=== PATIENT | female | born 1975 | race Caucasian/White ===

== ENCOUNTER 2016-10-22 05:58 | Inpatient (IN) | payer OTHER ==
--- NOTE | 2016-10-22 07:06 | PDOC ---
History of Present Illness <Jose Melvin - Last Filed: 10/22/16 12:21> - History of Present Illness Initial Comments: 10/22/16 07:21 41 F with h/o DM, diverticulitis s/p sigmoidectomy, ventral and umbilical hernias, presents to ER with 1 day of abdominal pain. Pt states that she began to feel discomfort yesterday but didn't think much of the pain. Today, the pain worsened at around 1am. It is mostly in the lower abdomen abut also in the epigastric area. Pt endorses nausea but no vomiting. Has not passed stool or flatus in 2 days. Does not typically suffer from constipation. Pt denies F/C. Denies CP/SOB. Pt states that the pain is worse when she stands up. Does not report any difficulty reducing her hernias. <Boubacar Prajapati - Last Filed: 10/22/16 12:34> - General Chief Complaint: Pain Stated Complaint: ABDOMINAL PAIN Time Seen by Provider: 10/22/16 07:06 Past History <NgoziJose - Last Filed: 10/22/16 12:21> - Past Medical History Diabetes: Yes (NIDDM) Suicide Attempt (Hx): No - Family Disease History Family Disease History: Diabetes: Father - Psycho/Social/Smoking Cessation Hx Anxiety: No Suicidal Ideation: No Smoking History: Never smoked Have you smoked in the past 12 months: Yes Number of Cigarettes Smoked Daily: 0 Information on smoking cessation initiated: No Hx Alcohol Use: No Drug/Substance Use Hx: No Substance Use Type: None <Boubacar Prajapati - Last Filed: 10/22/16 12:34> - Past Medical History Allergies/Adverse Reactions: Allergies Allergy/AdvReac Type Severity Reaction Status Date / Time Penicillins Allergy Verified 10/22/16 06:23 piperacillin sodium Allergy Verified 10/22/16 06:23 [From Zosyn] tazobactam sodium Allergy Verified 10/22/16 06:23 [From Zosyn] Home Medications: Ambulatory Orders Ezetimibe [Zetia] 10 mg PO DAILY 09/13/14 Cholecalciferol (Vitamin D3) [Vitamin D3 -] 400 unit PO DAILY 10/22/16 Dapagliflozin Propanediol [Farxiga] 10 mg PO DAILY 10/22/16 Glipizide Xl [Glucotrol Xl -] 5 mg PO DAILY 10/22/16 Lisinopril [Zestril] 2.5 mg PO DAILY 10/22/16 Review of Systems - Review of Systems Comments:: 10/22/16 07:24 "GENERAL/CONSTITUTIONAL: No fever, no lethargy HEAD, EYES, EARS, NOSE AND THROAT: No eye discharge. No ear pain or discharge. No sore throat. CARDIOVASCULAR: No chest pain. RESPIRATORY: No cough, no wheezing. GASTROINTESTINAL: +abdominal pain, constipation, nausea GENITOURINARY: No dysuria, no change in urine output MUSCULOSKELETAL: No joint pain. No neck or back pain. SKIN: No rash NEUROLOGIC: No headache, loss of consciousness, irritability. ENDOCRINE: No increased thirst. No abnormal weight change. ALLERGIC/IMMUNOLOGIC: No hives or skin allergy. " <Boubacar Prajapati - Last Filed: 10/22/16 12:34> *Physical Exam - Vital Signs Last Vital Signs Temp Pulse Resp BP Pulse Ox 97.8 F 65 16 134/71 99 10/22/16 06:17 10/22/16 06:17 10/22/16 06:17 10/22/16 06:17 10/22/16 06:17 <Jose Melvin - Last Filed: 10/22/16 12:21> - Vital Signs Last Vital Signs Temp Pulse Resp BP Pulse Ox 97.8 F 65 16 134/71 99 10/22/16 06:17 10/22/16 06:17 10/22/16 06:17 10/22/16 06:17 10/22/16 06:17 - Physical Exam Comments: 10/22/16 07:24 "GENERAL: Awake, alert, and appropriately interactive EYES: PERRLA, clear conjunctiva NOSE: Nose is clear without discharge EARS: EACs and TMs are normal THROAT: Moist mucosa, oropharynx is clear without erythema or exudates, NECK: Supple, no adenopathy, no meningismus CHEST: Lungs are clear without crackles, or wheezes HEART: Regular rhythm, normal S1 and S2, no murmurs ABDOMEN: + soft, TTP in epigastric and periumbilical region, no rebound/guarding , no palpable masses or hernia EXTREMITIES: Normal NEURO: Behavior normal for age, normal cranial nerves, normal tone SKIN: Unremarkable, no rash, no swelling, no bruising, no signs of injury " <OuBoubacar - Last Filed: 10/22/16 12:34> ED Treatment Course - LABORATORY CBC & Chemistry Diagram: 10/22/16 07:20 10/22/16 07:20 - ADDITIONAL ORDERS Additional order review: Laboratory Results 10/22/16 10/22/16 10/22/16 07:20 07:20 07:20 INR 0.99 PTT (Actin FS) 27.5 Sodium 137 Potassium 4.6 D Chloride 107 Carbon Dioxide 24 Anion Gap 6 L BUN 9 D Creatinine 0.6 Creat Clearance w eGFR > 60 Random Glucose 120 H Lactic Acid Calcium 8.8 Magnesium 2.3 Total Bilirubin 0.3 D Direct Bilirubin < 0.2 AST 19 ALT 34 Alkaline Phosphatase 119 H D Total Protein 6.9 Albumin 3.7 Lipase 131 Urine Color Urine Appearance Urine pH Urine Protein Urine Glucose (UA) Urine Ketones Urine Blood Urine Nitrite Urine Bilirubin Urine Urobilinogen Ur Leukocyte Esterase Urine RBC Urine WBC Ur Epithelial Cells Urine Mucus Urine HCG, Qual Blood Type Antibody Screen 10/22/16 10/22/16 10/22/16 07:20 07:20 07:19 INR PTT (Actin FS) Sodium Potassium Chloride Carbon Dioxide Anion Gap BUN Creatinine Creat Clearance w eGFR Random Glucose Lactic Acid 1.2 Calcium Magnesium Total Bilirubin Direct Bilirubin AST ALT Alkaline Phosphatase Total Protein Albumin Lipase Urine Color Yellow Urine Appearance Slcloudy Urine pH 5.0 Urine Protein Negative Urine Glucose (UA) 3+ H Urine Ketones Trace H Urine Blood 2+ H Urine Nitrite Negative Urine Bilirubin Negative Urine Urobilinogen Negative Ur Leukocyte Esterase Trace Urine RBC 3 Urine WBC 13 Ur Epithelial Cells Rare Urine Mucus Rare Urine HCG, Qual Negative Blood Type A NEGATIVE Antibody Screen Negative 10/22/16 07:20 RBC 4.82 MCV 87.6 MCHC 33.2 RDW 14.0 MPV 7.8 Neutrophils % 70.0 Lymphocytes % 22.4 D Monocytes % 5.8 Eosinophils % 1.4 D Basophils % 0.4 - Medications Given in the ED: ED Medications Discontinued Medications Generic Name Dose Route Start Last Admin Trade Name Freq PRN Reason Stop Dose Admin Sodium Chloride 1,000 mls @ 1,000 mls/hr 10/22/16 07:21 10/22/16 07:45 Normal Saline - IV 10/22/16 08:20 1,000 mls/hr ASDIR STA Administration Morphine Sulfate 4 mg 10/22/16 07:21 10/22/16 07:45 Morphine Injection - IVPUSH 10/22/16 07:22 4 mg ONCE ONE Administration Morphine Sulfate 4 mg 10/22/16 10:38 10/22/16 10:39 Morphine Injection - IVPUSH 10/22/16 10:39 4 mg ONCE ONE Administration Ondansetron HCl 4 mg 10/22/16 07:21 10/22/16 07:45 Zofran Injection IVPB 10/22/16 07:22 4 mg ONCE ONE Administration <Jose Melvin - Last Filed: 10/22/16 12:21> - LABORATORY CBC & Chemistry Diagram: 10/22/16 07:20 10/22/16 07:20 <Boubacar Prajapati - Last Filed: 10/22/16 12:34> Medical Decision Making - Medical Decision Making 10/22/16 10:[address] kim @10:36am. Busy line, left voice mail. Awaiting Call Back. Call back from Dr. Kim @10:41am. Called Dr. Lexii Miles @12:20pm. Away from office. Awaiting call back. <Jose Melvin - Last Filed: 10/22/16 12:21> - Medical Decision Making 10/22/16 07:26 41 F with abdominal pain. No stool/flatus x 2 days, concerning for obstruction. Possible incarcerated hernia, though not palpable on exam. - Labs - CTAP - IVF, morphine, zofran 10/22/16 11:03 CTAP read shows air in endometrial canal. No other intraabdominal pathology found. Spoke with Dr. Vernon electronics teacher property economist, who recommends obtaining TVUS to better evaluate. Will empirically start antibiotics for possible endometritis and admit to hospitalist. Dr. Vernon to eval in AM. 10/22/16 12:33 TVUS with IUD in place, no collections, cannot rule out air. Spoke with Dr. Alex Miles, who will admit pt. Pt to be evaluated by Ob/ mine development engineer tomorrow. <Boubacar Prajapati - Last Filed: 10/22/16 12:34> *DC/Admit/Observation/Transfer - Attestations Scribe Attestion: 10/22/16 10:48 Documentation prepared by Jose Melvin, acting as medical insurance biller for Boubacar Prajapati MD. <Jose Melvin - Last Filed: 10/22/16 12:21> - Discharge Dispostion Admit: Yes <Boubacar Prajpaati - Last Filed: 10/22/16 12:34> Diagnosis at time of Disposition: Endometritis - Referrals Referrals: Alex Miles MD [Primary Care Provider] -
[2016-10-22] MEDS ORDERED: SODIUM CHLORIDE 1,000 ML IV STA (07:21)
[2016-10-22] MEDS ORDERED: ONDANSETRON 4 MG/2 ML VIAL IVPB ONE ×2 (07:21→11:49)
[2016-10-22] MEDS ORDERED: morphine CARPU-JECT 4 MG/1 ML DISP.SYRIN IVPUSH ONE ×2 (07:21→10:38)
[2016-10-22] MEDS ORDERED: morphine CARPU-JECT 2 MG/1 ML DISP.SYRIN ONE ×2 (07:30→10:26)
[2016-10-22] MEDS ORDERED: ONDANSETRON 4 MG/2 ML VIAL ONE ×2 (07:31→11:54)
[2016-10-22 07:34] LABS: BASOPHIL 0.4 % (0-2.0); EOSINOPHIL 1.4 % (0-4.5); MCH 29.1 pg (25.7-33.7); MCHC 33.2 g/dl (32.0-36.0); MEAN CELL VOLUME 87.6 fl (80-96); MEAN PLT VOLUME 7.8 fl (7.5-11.1); PLATELET COUNT 306 K/MM3 (134-434); URINE APPEARANCE SLCLOUDY; URINE BILIRUBIN NEGATIVE (NEGATIVE); URINE BLOOD 2+ (NEGATIVE); URINE COLOR YELLOW; URINE GLUCOSE (UA) 3+ (NEGATIVE); URINE KETONE TRACE (NEGATIVE); URINE LEUK ESTERASE TRACE (NEGATIVE); URINE NITRITE NEGATIVE (NEGATIVE); URINE PROTEIN NEGATIVE (NEGATIVE); URINE UROBILINOGEN NEGATIVE mg/dL (0.2-1.0); WHITE BLOOD COUNT 13.4 K/mm3 (4.0-10.0)
[2016-10-22 07:58] LABS: ALBUMIN 3.7 g/dl (3.4-5.0); ALK PHOS 119 U/L (45-117); ANION GAP 6 (8-16); BILIRUBIN,TOTAL 0.3 mg/dL (0.2-1.0); CALCIUM 8.8 mg/dL (8.5-10.1); CO2 24 mmol/L (21-32); CREATININE 0.6 mg/dL (0.55-1.02); GLUCOSE,RANDOM 120 mg/dL (74-106); SGPT/ALT 34 U/L (12-78); TOT PROT 6.9 g/dl (6.4-8.2)
[2016-10-22 08:05] LABS: BILIRUBIN,DIRECT < 0.2 mg/dL (0.0-0.2); SGOT/AST 19 U/L (15-37)
[2016-10-22 08:21] LABS: INR 0.99 (0.82-1.09); PROTHROMBIN TIME (PATIENT) 10.9 SEC (9.98-11.88)
[2016-10-22 08:24] LABS: ACTIVATED PTT 27.5 SECONDS (26.9-34.4)
[2016-10-22 08:34] LABS: URINE MUCUS RARE; URINE RBC 3 /hpf (0-3); URINE WBC 13 /hpf (3-5)
[2016-10-22] MEDS ORDERED: IBUPROFEN 400 MG TABLET (FP) PO ONE (09:08)
[2016-10-22] MEDS ORDERED: cefOXitin SODIUM 2 GM VIAL (RESTRICTED TO ID) IVPB ONE (10:46)
[2016-10-22] MEDS ORDERED: DOXYCYCLINE HYCLATE 100 MG CAPSULE PO ONE ×2 (10:48→10:51)
[2016-10-22] MEDS ORDERED: FAMOTIDINE 20 MG/50 ML IVPB 50 ML IVPB ONE ×2 (11:49→11:54)
[2016-10-22] MEDS ORDERED: INSULIN (NOVOLOG) ASPART 100 UNITS/ML 10ML VIAL SQ PRN (13:09)
--- NOTE | 2016-10-22 13:14 | HP ---
Admitting History and Physical - Primary Care Physician PCP: Rosario Weathers - Admission Chief Complaint: abdominal pain. History of Present Illness: 41 F with h/o DM, diverticulitis s/p sigmoidectomy, ventral and umbilical hernias, presents to ER with 1 day of abdominal pain. Pt states that she began to feel discomfort yesterday but didn't think much of the pain. Today, the pain worsened at around 1am. It is mostly in the lower abdomen abut also in the epigastric area. Pt endorses nausea but no vomiting. Has not passed stool or flatus in 2 days. Does not typically suffer from constipation. Pt denies F/C. Denies CP/SOB. Pt states that the pain is worse when she stands up. Does not report any difficulty reducing her hernias. work up showed air in endometrial canal-- otherwise no acute issues pt given abx/ pain meds and being admitted to floor. feels better after that. urogynecology physician consulted by er physician. case discussed with er physician. pt seen by me in er. chart reviewed pt recently also seen in office by Dr. Weathers-- was reffered to Dr García for hernias-- pt would like to see Dr. Nuñez in hospital today. History Source: Patient Limitations to Obtaining History: No Limitations - Past Medical History Cardiovascular: Yes: Hyperlipdemia Gastrointestinal: Yes: Diverticulitis, Other (METABOLIC SYNDROME) Hepatobiliary: Yes: Other (FATTY LIVER) ...LMP: 11/14/14 Endocrine: Yes: Diabetes Mellitus, Other (METABOLIC SYNDROME) - Smoking History Smoking history: Never smoked Have you smoked in the past 12 months: Yes Aproximately how many cigarettes per day: 0 - Alcohol/Substance Use Hx Alcohol Use: No Home Medications - Allergies Allergies/Adverse Reactions: Allergies Allergy/AdvReac Type Severity Reaction Status Date / Time Penicillins Allergy Verified 10/22/16 06:23 piperacillin sodium Allergy Verified 10/22/16 06:23 [From Zosyn] tazobactam sodium Allergy Verified 10/22/16 06:23 [From Zosyn] - Home Medications Home Medications: Ambulatory Orders Lisinopril [Zestril] 2.5 mg PO DAILY 10/22/16 Family Disease History - Family Disease History Family History: Unremarkable Review of Systems - Review of Systems Constitutional: reports: Lethargy Eyes: reports: No Symptoms HENT: reports: No Symptoms Neck: reports: No Symptoms Cardiovascular: reports: No Symptoms Respiratory: reports: No Symptoms Gastrointestinal: reports: Abdominal Pain Genitourinary: reports: No Symptoms Musculoskeletal: reports: No Symptoms Neurological: reports: No Symptoms Psychiatric: reports: No Symptoms Physical Examination Vital Signs: Vital Signs Temperature 97.8 F 10/22/16 06:17 Pulse Rate 65 10/22/16 06:17 Respiratory Rate 16 10/22/16 06:17 Blood Pressure 134/71 10/22/16 06:17 O2 Sat by Pulse Oximetry (%) 99 10/22/16 06:17 Constitutional: Yes: Calm, Mild Distress, Obese. No: No Distress Eyes: Yes: Conjunctiva Clear Neck: Yes: Supple Cardiovascular: Yes: Regular Rate and Rhythm Respiratory: Yes: CTA Bilaterally Gastrointestinal: Yes: Soft, Other (hernia +) Edema: No Neurological: Yes: Alert Labs: CBC, BMP 10/22/16 07:20 10/22/16 07:20 Imaging - Results Cat Scan: Report Reviewed Ultrasound: Report Reviewed Problem List - Problems (1) Endometritis Code(s): N71.9 - INFLAMMATORY DISEASE OF UTERUS, UNSPECIFIED (2) NIDDY (non-insulin dependent diabetes 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 Assessment/Plan Abx clear liquid diet for now pain control hold diabetic meds bgm - coverage urogynecology physician consult surgical consult discussed with pts family also who is at bedside will follow
--- NOTE | 2016-10-22 15:20 | PN ---
Progress Note (short form) - Note Progress Note: ID Consult dictated Acute endometritis v. colonic fistula ? Pelvic actinomycosis (IUD) PCN allergy Obtain c/s OVERLOCKER/ Surg evaluation Empiric cefoxitin/ Doxycycline
[2016-10-22 15:46] VITALS: BMI 32.3
[2016-10-22] MEDS: SODIUM CHLORIDE 1,000 ML IV SCH (16:34)
[2016-10-22] MEDS: morphine CARPU-JECT 2 MG/1 ML DISP.SYRIN IVPUSH PRN ×2 (16:34→20:31)
[2016-10-22] MEDS: ONDANSETRON 4 MG/2 ML VIAL IVPB PRN (16:46)
--- NOTE | 2016-10-22 17:12 | CONS ---
DATE OF CONSULTATION: DATE OF DICTATION: 10/22/2016 INFECTIOUS DISEASE CONSULTATION HISTORY OF PRESENT ILLNESS: The patient is a 41-year-old female who is evaluated for endometritis. She has a history of recurrent acute diverticulitis. She is status post sigmoidectomy in 2013. She developed a 1-day history of abdominal pain. Patient began to experience pain across her lower abdomen as well as left upper abdomen associated with some nausea but no vomiting. In addition the patient became constipated. She had not passed stool or flatus for the past 2-3 days. She presented to the emergency room, where a CAT scan of the abdomen and pelvis was performed. The significant finding on the CAT scan showed air around the stem of an IUD present in the lower uterine segment with some air in the vaginal region. Differential diagnosis included endometritis versus possible fistula with bowel. She was empirically treated with and doxycycline. The patient denies any vaginal discharge or bleeding. She is not sexually active. An IUD was placed in March this year because of menometrorrhagia. She denies history of sexually transmitted diseases. PAST MEDICAL HISTORY: Positive for diabetes mellitus, recurrent diverticulitis. PAST SURGICAL HISTORY: Status post sigmoidectomy. ALLERGIES: PENICILLIN. Patient reports developing rash with ZOSYN. MEDICATION: Include cefoxitin, doxycycline, heparin, Novolog, morphine. SOCIAL HISTORY: She lives at home. She is a nonsmoker, nondrinker. She is employed, is single. SYSTEMS REVIEW: Neurologic: No loss of consciousness, seizure activity, or focal weakness. Cardiac: Negative chest pain or palpitations. Respiratory: Negative cough or sputum production. Gastrointestinal: As per HPI. Genitourinary: Negative for urinary tract infection. LABORATORY DATA: White count 13.4, 70 neutrophils, 22 lymphocytes, 5 monocytes. Hematocrit 42.3, platelet count 386, creatinine 0.6, urinalysis 13 white cells. PHYSICAL EXAMINATION: General: She is awake and alert. She is in moderate distress secondary to abdominal pain. Vital signs: Temperature 98.2, blood pressure 134/80, pulse 70 and regular, respirations 20 per minute. HEENT: Sclerae anicteric. Cardiovascular: Heart sounds S1, S2. Respiratory: Lungs clear. Abdomen: Soft. There is lower abdominal tenderness bilaterally. Left paraumbilical tenderness. No mass, rebound, or rigidity. Healed surgical scar is noted. Extremities: Negative for edema. IMPRESSION: 1. Acute endometritis versus colonic fistula. 2. 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 3. PENICILLIN allergy. Obtain blood cultures, urine culture, urine for GC chlamydia, empiric antibiotic coverage for endometritis, in this PENICILLIN allergic patient with cefoxitin. Will add doxycycline as a second-line drug for actinomycosis in this PENICILLIN allergic patient. Surgical and FORMULATOR COMPOUNDER evaluations. Thank you for the kind referral. ROGELIO KING M.D. [facility]/[id number]
[2016-10-22] MEDS ORDERED: PT OWN MED DRAWER 7, Y5N ONE (20:24)
[2016-10-22] MEDS ORDERED: cefOXitin SODIUM 2 GM VIAL (RESTRICTED TO ID) IVPB SCH (21:00)
[2016-10-22] MEDS: DOXYCYCLINE INJECTION 100 MG in DEXTROSE 5%-WATER - 100 ML IVPB SCH (21:43)
[2016-10-22] MEDS: CEFOXITIN SODIUM 2 GM in DEXTROSE 5%-WATER 100 ML IVPB SCH (21:43)
[2016-10-22] MEDS: HEPARIN NA (PORCINE) 5,000 UNITS/ML 1ML VIAL SQ SCH (21:44)
[2016-10-23] MEDS: CEFOXITIN SODIUM 2 GM in DEXTROSE 5%-WATER 100 ML IVPB SCH ×2 (03:00→09:32)
[2016-10-23] MEDS: SODIUM CHLORIDE 1,000 ML IV SCH ×3 (06:00→20:14)
[2016-10-23] MEDS: morphine CARPU-JECT 2 MG/1 ML DISP.SYRIN IVPUSH PRN ×2 (06:27→11:07)
[2016-10-23 07:10] LABS: BASOPHIL 0.3 % (0-2.0); EOSINOPHIL 2.6 % (0-4.5); MCHC 33.4 g/dl (32.0-36.0); MEAN CELL VOLUME 86.8 fl (80-96); MEAN PLT VOLUME 8.1 fl (7.5-11.1); NEUTROPHILS 66.7 % (42.8-82.8); PLATELET COUNT 273 K/MM3 (134-434); WHITE BLOOD COUNT 11.7 K/mm3 (4.0-10.0)
[2016-10-23 07:19] LABS: ALBUMIN 3.2 g/dl (3.4-5.0); ANION GAP 7 (8-16); BILIRUBIN,TOTAL 0.5 mg/dL (0.2-1.0); CALCIUM 8.1 mg/dL (8.5-10.1); CO2 25 mmol/L (21-32); CREATININE 0.6 mg/dL (0.55-1.02); GLUCOSE,RANDOM 99 mg/dL (74-106); SGOT/AST 14 U/L (15-37); SGPT/ALT 30 U/L (12-78); TOT PROT 6.3 g/dl (6.4-8.2)
[2016-10-23 07:20] LABS: ALK PHOS 102 U/L (45-117)
[2016-10-23] MEDS ORDERED: PT OWN MED DRAWER 7, Y5N ONE (08:42)
[2016-10-23] MEDS: HEPARIN NA (PORCINE) 5,000 UNITS/ML 1ML VIAL SQ SCH ×2 (09:35→21:01)
[2016-10-23] MEDS: DOXYCYCLINE INJECTION 100 MG in DEXTROSE 5%-WATER - 100 ML IVPB SCH (09:37)
--- NOTE | 2016-10-23 09:54 | PN ---
Progress Note, Physician Chief Complaint: has pelvic pain no nausea has constipation - Current Medication List Current Medications: Active Medications Heparin Sodium (Porcine) (Heparin -) 5,000 unit SQ BID LUCY Last Admin: 10/23/16 09:35 Dose: 5,000 unit Sodium Chloride (Normal Saline -) 1,000 mls @ 100 mls/hr IV ASDIR LUCY Last Admin: 10/23/16 06:00 Dose: 100 mls/hr Doxycycline Hyclate 100 mg/ (Dextrose) 100 mls @ 100 mls/hr IVPB BID LUCY Last Admin: 10/23/16 09:37 Dose: 100 mls/hr Cefoxitin Sodium 2 gm/ (Dextrose) 100 mls @ 200 mls/hr IVPB Q6H-IV LUCY Last Admin: 10/23/16 09:32 Dose: 200 mls/hr Insulin Aspart (Novolog Vial) 0 units SQ BIDAC PRN; Protocol PRN Reason: APTT Morphine Sulfate (Morphine Injection -) 2 mg IVPUSH Q4H PRN PRN Reason: MODERATE PAIN Last Admin: 10/23/16 06:27 Dose: 2 mg Ondansetron HCl (Zofran Injection) 4 mg IVPB Q6H PRN PRN Reason: NAUSEA Last Admin: 10/22/16 16:46 Dose: 4 mg - Objective Vital Signs: Vital Signs Temperature 98.1 F 10/23/16 06:00 Pulse Rate 65 10/23/16 06:00 Respiratory Rate 20 10/23/16 06:00 Blood Pressure 125/66 10/23/16 06:00 O2 Sat by Pulse Oximetry (%) 96 10/22/16 21:00 Constitutional: Yes: No Distress Cardiovascular: Yes: Regular Rate and Rhythm Respiratory: Yes: CTA Bilaterally Gastrointestinal: Yes: Normal Bowel Sounds, Soft. No: Distention, Tenderness Genitourinary: Yes: Other (suprapubic tenderness) Edema: No Psychiatric: Yes: Alert, Oriented Labs: CBC, BMP 10/23/16 06:00 10/23/16 06:00 INR, PTT INR 0.99 (0.82-1.09) 10/22/16 07:20 Problem List - Problems (1) Endometritis Code(s): N71.9 - INFLAMMATORY DISEASE OF UTERUS, UNSPECIFIED (2) Dehydration Code(s): E86.0 - DEHYDRATION (3) Diabetes mellitus Code(s): E11.9 - TYPE 2 DIABETES MELLITUS WITHOUT COMPLICATIONS Qualifiers: Diabetes mellitus type: type 2 Assessment/Plan PLAN iv antibiotics spoke with ID and MARINE STRUCTURAL WELDER to remove IUD today continue with meds pain control
--- NOTE | 2016-10-23 10:03 | PN ---
Progress Note, Physician Chief Complaint: ID NAD Pain 5/10 on pain scale today Cefotetan and doxycycline - Current Medication List Current Medications: Active Medications Heparin Sodium (Porcine) (Heparin -) 5,000 unit SQ BID LUCY Last Admin: 10/23/16 09:35 Dose: 5,000 unit Sodium Chloride (Normal Saline -) 1,000 mls @ 100 mls/hr IV ASDIR LUCY Last Admin: 10/23/16 06:00 Dose: 100 mls/hr Doxycycline Hyclate 100 mg/ (Dextrose) 100 mls @ 100 mls/hr IVPB BID LUCY Last Admin: 10/23/16 09:37 Dose: 100 mls/hr Cefoxitin Sodium 2 gm/ (Dextrose) 100 mls @ 200 mls/hr IVPB Q6H-IV LUCY Last Admin: 10/23/16 09:32 Dose: 200 mls/hr Insulin Aspart (Novolog Vial) 0 units SQ BIDAC PRN; Protocol PRN Reason: APTT Morphine Sulfate (Morphine Injection -) 2 mg IVPUSH Q4H PRN PRN Reason: MODERATE PAIN Last Admin: 10/23/16 06:27 Dose: 2 mg Ondansetron HCl (Zofran Injection) 4 mg IVPB Q6H PRN PRN Reason: NAUSEA Last Admin: 10/22/16 16:46 Dose: 4 mg - Objective Vital Signs: Vital Signs Temperature 98.1 F 10/23/16 06:00 Pulse Rate 65 10/23/16 06:00 Respiratory Rate 20 10/23/16 06:00 Blood Pressure 125/66 10/23/16 06:00 O2 Sat by Pulse Oximetry (%) 96 10/22/16 21:00 Constitutional: Yes: Well Nourished, No Distress HENT: Yes: WNL, Atraumatic Neck: Yes: WNL, Supple Cardiovascular: Yes: S1, S2 Respiratory: Yes: WNL, Regular, CTA Bilaterally Gastrointestinal: Yes: WNL, Normal Bowel Sounds, Soft, Tenderness. No: Tenderness, Rebound Edema: No Labs: CBC, BMP 10/23/16 06:00 10/23/16 06:00 INR, PTT INR 0.99 (0.82-1.09) 10/22/16 07:20 Assessment/Plan Laboratory Tests 08/25/17 08/25/17 08/26/17 07:20 07:20 06:00 WBC 13.4 H Hgb 14.0 D Hct 42.3 Plt Count 306 BUN 5 L D Creatinine 0.6 Total Protein 6.3 L Albumin 3.2 L Urine RBC 3 Urine WBC 13 C.trachomatis Ampl DNA N. gonorrhoeae (VLA) 10/23/16 06:00 WBC Hgb Hct Plt Count BUN Creatinine Total Protein Albumin Urine RBC Urine WBC C.trachomatis Ampl DNA Pending N. gonorrhoeae (VAL) Pending Assessment Infection associated with an IUD since 2106 She has not been sexually active in years and the IUD placed for other reasons. Dr Akers raises the interesting possibility of Actinomycosis ( IUD) in a PCN allergic patient. She is not sexually active so STD unlikely Advise Clindamycin 600mg IVPB q 8h and Ceftriaxone HIV testing ESR CRP Await CLAIMS DIRECTOR evaluation Suspect IDU will need to be removed Chanel SAENZ
--- NOTE | 2016-10-23 10:10 | CONSULT ---
- Consultation REQUESTING PROVIDER: Jd SAENZ CONSULT REQUEST: We have been asked to surgically evaluate this patient for abdominal pain/abdominal wall hernia(s) PCP:Alex Miles HISTORY OF PRESENT ILLNESS: CTSP who told me she has an appt. next week to see me for evaaluation and management of an abdominal wall hernia; she was admitted w/ lower abdominal/pelvic pain which is ?? due to endometritis ??; she has a h/ o a sigmoid colon resection for diverticulitis 2 years ago after # attacks; she is aware of the hernia from a recent outpatient CT scan and ?? lower abdominal bulging ??. PMHx: hypertension PSHx: sigmoid colon resection Home Medications Medication Instructions Recorded Lisinopril [Zestril] 2.5 mg PO DAILY 10/22/16 Allergies Allergy/AdvReac Type Severity Reaction Status Date / Time Penicillins Allergy Verified 10/22/16 06:23 piperacillin sodium Allergy Verified 10/22/16 06:23 [From Zosyn] tazobactam sodium Allergy Verified 10/22/16 06:23 [From Zosyn] PHYSICAL EXAM: GENERAL: Awake, alert, and fully oriented, in no acute distress. HEAD: Normal with no signs of trauma. EYES: sclera anicteric, conjunctiva clear. NECK: Normal ROM, supple without lymphadenopathy, JVD, or masses. ABDOMEN: Soft, nontender, not distended, normoactive bowel sounds, no guarding, no rebound, no masses. No organomegaly. Healed surgical scar; lower abdominal wall incisional hernia; reducible. MUSCULOSKELETAL: Normal ROM at all joints. No bony deformities or tenderness. No CVA tenderness. UPPER EXTREMITIES: 2+ pulses, warm, well-perfused. No cyanosis. Cap refill <2 seconds. No peripheral edema. LOWER EXTREMITIES: 2+ pulses, warm, well-perfused. No calf tenderness. No peripheral edema. NEUROLOGICAL: Normal speech, gait not observed. PSYCH: Cooperative. Good eye contact. Appropriate mood and affect. SKIN: Warm, dry, normal turgor, no rashes or lesions noted. Vital Signs Temperature 98.1 F 10/23/16 06:00 Pulse Rate 65 10/23/16 06:00 Respiratory Rate 20 10/23/16 06:00 Blood Pressure 125/66 10/23/16 06:00 O2 Sat by Pulse Oximetry (%) 96 10/22/16 21:00 Lab Results WBC 11.7 K/mm3 (4.0-10.0) H 10/23/16 06:00 RBC 4.44 M/mm3 (3.60-5.2) 10/23/16 06:00 Hgb 12.9 GM/dL (10.7-15.3) 10/23/16 06:00 Hct 38.5 % (32.4-45.2) 10/23/16 06:00 MCV 86.8 fl (80-96) 10/23/16 06:00 MCHC 33.4 g/dl (32.0-36.0) 10/23/16 06:00 RDW 14.0 % (11.6-15.6) 10/23/16 06:00 Plt Count 273 K/MM3 (134-434) 10/23/16 06:00 Sodium 140 mmol/L (136-145) 10/23/16 06:00 Potassium 4.2 mmol/L (3.5-5.1) 10/23/16 06:00 Chloride 108 mmol/L (98-107) H 10/23/16 06:00 Carbon Dioxide 25 mmol/L (21-32) 10/23/16 06:00 Anion Gap 7 (8-16) L 10/23/16 06:00 BUN 5 mg/dL (7-18) L D 10/23/16 06:00 Creatinine 0.6 mg/dL (0.55-1.02) 10/23/16 06:00 Random Glucose 99 mg/dL (74-106) 10/23/16 06:00 Calcium 8.1 mg/dL (8.5-10.1) L 10/23/16 06:00 Blood Type A NEGATIVE 10/22/16 07:20 Antibody Screen Negative 10/22/16 07:20 INR 0.99 (0.82-1.09) 10/22/16 07:20 IMP: incisional hernia PLAN: After current problem resolved she may f/u as an outpatient for elective incisional hernia repair; we discudded the s's' and s's of incarceration and/or strangulation and what to do should that occur prior to any planned elective repair; a/a/u by the patient. Boubacar Nuñez MD FACS Visit type - Case Type Case Type: ED Admission - Emergency Emergency Visit: Yes ED Registration Date: 10/22/16 Care time: The patient presented to the Emergency Department on the above date and was hospitalized for further evaluation of their emergent condition. - New patient This patient is new to me today: Yes Date on this admission: 10/23/16 - Critical Care Critical Care patient: No
[2016-10-23 11:03] LABS: HIV 1 & 2 AB NEGATIVE; HIV 1 AGp24 NEGATIVE
--- NOTE | 2016-10-23 11:55 | CON.OBG ---
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 Miles Reason for Consultation:: Abdominal / Pelvic pain - History of Present Illness Chief Complaint: Abdominal pain History of Present Illness: 41 F with h/o DM, diverticulitis s/p sigmoidectomy, ventral and umbilical hernias, presents to ER with 1 day of abdominal pain. Pt states that she began to feel discomfort yesterday but didn't think much of the pain. The pain had worsened later. Pain was mostly in the lower abdomen. I came to see patient, she did not appear to be in severe discomfort. She admits to have had an IUD placed 7 months ago. She was doing well until yesterday. Transvaginal sonogram done and reviewed. - History Source History Provided By: Patient Limitations to Obtaining History: No Limitations - Past Medical History Cardio/Vascular: Yes: Hyperlipdemia Gastrointestinal: Yes: Diverticulitis, Other (METABOLIC SYNDROME) Hepatobiliary: Yes: Other (FATTY LIVER) ...LMP: 11/14/14 Endocrine: Yes: Diabetes Mellitus, Other (METABOLIC SYNDROME) - Past Surgical History Additional Surgical History: Sigmoidectomy - Alcohol/Substance Use Hx Alcohol Use: No - Smoking History Smoking history: Never smoked Have you smoked in the past 12 months: Yes Aproximately how many cigarettes per day: 0 - Social History History of Recent Travel: No Home Medications - Allergies Allergies/Adverse Reactions: Allergies Allergy/AdvReac Type Severity Reaction Status Date / Time Penicillins Allergy Verified 10/22/16 06:23 piperacillin sodium Allergy Verified 10/22/16 06:23 [From Zosyn] tazobactam sodium Allergy Verified 10/22/16 06:23 [From Zosyn] - Home Medications Home Medications: Ambulatory Orders Lisinopril [Zestril] 2.5 mg PO DAILY 10/22/16 Family Disease History - Family Disease History Family History: Unremarkable Review of Systems - Review of Systems Constitutional: denies: Chills, Diaphoresis, Lethargy, Loss of Appetite, Malaise , Night Sweats, Unintentional Wgt. Loss, Weakness Eyes: reports: No Symptoms HENT: reports: No Symptoms Neck: reports: No Symptoms Cardiovascular: reports: No Symptoms Respiratory: reports: No Symptoms Gastrointestinal: reports: Abdominal Pain Genitourinary: denies: Vaginal Bleeding Breasts: reports: No Symptoms Reported Musculoskeletal: reports: No Symptoms Integumentary: reports: No Symptoms Neurological: reports: No Symptoms Hematology/Lymphatic: reports: No Symptoms Psychiatric: reports: No Symptoms Pain Intensity: 3 Physical Exam-[employer] BR[employer] F[employer]ER Vital Signs: Vital Signs Temperature 98.1 F 10/23/16 06:00 Pulse Rate 65 10/23/16 06:00 Respiratory Rate 20 10/23/16 06:00 Blood Pressure 125/66 10/23/16 06:00 O2 Sat by Pulse Oximetry (%) 96 10/22/16 21:00 Constitutional: Yes: Well Nourished Eyes: Yes: Conjunctiva Clear HENT: Yes: Atraumatic Neck: Yes: Supple, Trachea Midline Cardiovascular: Yes: Regular Rate and Rhythm Respiratory: Yes: Regular, CTA Bilaterally Gastrointestinal: Yes: Normal Bowel Sounds Pelvis: Yes: Tenderness External Genitalia: Yes: Normal Vaginal Exam: Yes: Normal Cervix: Yes: Other (IUD string visualized) Uterus: Yes: Normal Breast(s): Yes: WNL Musculoskeletal: Yes: WNL Extremities: Yes: WNL Neurological: Yes: Alert, Oriented ...Motor Strength: WNL Psychiatric: Yes: Alert, Oriented Labs: CBC, BMP 10/23/16 06:00 10/23/16 06:00 Assessment/Plan Pelvic pain Endometritis Personal h/o Diverticulitis Personal h/o Diabetes Continue IV antibiotic IUD removal recommended Procedure : Patient placed in lithotomy position Speculum placed in the vagina Using a ring forcep IUD string was grasped and pulled IUD sent to pathology Patient tolerated procedure well
[2016-10-23] MEDS ORDERED: cefTRIAXone SODIUM 1 GM VIAL ONE (14:19)
[2016-10-23] MEDS ORDERED: DEXTROSE 5%-WATER - 50 ML IVPB ONE (14:19)
[2016-10-23] MEDS: CEFTRIAXONE 1 GM in DEXTROSE 5%-WATER - 50 ML IVPB SCH (14:29)
[2016-10-23] MEDS: ONDANSETRON 4 MG/2 ML VIAL IVPB PRN (15:37)
[2016-10-23] MEDS ORDERED: morphine CARPU-JECT 4 MG/1 ML DISP.SYRIN IVPUSH PRN ×2 (15:55→21:58)
[2016-10-23] MEDS ORDERED: MAGNESIUM HYDROX 2400MG/30ML ORAL SUSPENSION 30 ML CUP PO PRN (16:06)
[2016-10-23] MEDS: CLINDAMYCIN 600MG PREMIX IVPB 50 ML IVPB SCH (17:01)
[2016-10-23] MEDS ORDERED: morphine CARPU-JECT 2 MG/1 ML DISP.SYRIN IVPUSH PRN (17:08)
[2016-10-24] MEDS: CLINDAMYCIN 600MG PREMIX IVPB 50 ML IVPB SCH ×3 (01:21→17:15)
[2016-10-24] MEDS: SODIUM CHLORIDE 1,000 ML IV SCH (06:28)
[2016-10-24] MEDS ORDERED: cefTRIAXone SODIUM 1 GM VIAL ONE (08:53)
[2016-10-24] MEDS ORDERED: DEXTROSE 5%-WATER - 50 ML IVPB ONE (08:53)
[2016-10-24] MEDS: CEFTRIAXONE 1 GM in DEXTROSE 5%-WATER - 50 ML IVPB SCH (09:01)
[2016-10-24] MEDS: HEPARIN NA (PORCINE) 5,000 UNITS/ML 1ML VIAL SQ SCH ×2 (09:01→21:16)
[2016-10-24] MEDS ORDERED: PT OWN MED DRAWER 7, Y5N ONE (09:47)
[2016-10-24] MEDS: ONDANSETRON 4 MG/2 ML VIAL IVPB PRN (09:53)
[2016-10-24] MEDS ORDERED: CEFTRIAXONE 1 GM in DEXTROSE 5%-WATER - 50 ML IVPB SCH (10:00)
--- NOTE | 2016-10-24 10:23 | PN ---
Progress Note, Physician Chief Complaint: IUD removed yesterday no c/o pain - Current Medication List Current Medications: Active Medications Heparin Sodium (Porcine) (Heparin -) 5,000 unit SQ BID [facility] Last Admin: 10/24/16 09:01 Dose: 5,000 unit Sodium Chloride (Normal Saline -) 1,000 mls @ 100 mls/hr IV ASDIR [facility] Last Admin: 10/24/16 06:28 Dose: 100 mls/hr Clindamycin Phosphate (Cleocin 600 Mg Premix Ivpb -) 50 mls @ 100 mls/hr IVPB Q8H-IV [facility] Last Admin: 10/24/16 09:00 Dose: 100 mls/hr Ceftriaxone Sodium 1 gm/ (Dextrose) 50 mls @ 100 mls/hr IVPB DAILY [facility] Last Admin: 10/24/16 09:01 Dose: 100 mls/hr Insulin Aspart (Novolog Vial) 0 units SQ BIDAC PRN; Protocol PRN Reason: APTT Magnesium Hydroxide (Milk Of Magnesia -) 30 ml PO DAILY PRN PRN Reason: CONSTIPATION Morphine Sulfate (Morphine Injection -) 1 mg IVPUSH Q4H PRN PRN Reason: MODERATE PAIN Last Admin: 10/23/16 22:17 Dose: 1 mg Ondansetron HCl (Zofran Injection) 4 mg IVPB Q6H PRN PRN Reason: NAUSEA Last Admin: 10/24/16 09:53 Dose: 4 mg - Objective Vital Signs: Vital Signs Temperature 97.8 F 10/24/16 06:29 Pulse Rate 57 L 10/24/16 06:29 Respiratory Rate 18 10/24/16 06:29 Blood Pressure 112/58 10/24/16 06:29 O2 Sat by Pulse Oximetry (%) 96 10/23/16 17:46 Constitutional: Yes: No Distress Cardiovascular: Yes: Regular Rate and Rhythm Respiratory: Yes: CTA Bilaterally Gastrointestinal: Yes: Normal Bowel Sounds, Soft. No: Distention, Tenderness Edema: No Labs: CBC, BMP 10/23/16 06:00 10/23/16 06:00 INR, PTT INR 0.99 (0.82-1.09) 10/22/16 07:20 Problem List - Problems (1) Endometritis Code(s): N71.9 - INFLAMMATORY DISEASE OF UTERUS, UNSPECIFIED (2) Dehydration Code(s): E86.0 - DEHYDRATION (3) Diabetes mellitus Code(s): E11.9 - TYPE 2 DIABETES MELLITUS WITHOUT COMPLICATIONS Qualifiers: Diabetes mellitus type: type 2 Assessment/Plan PLAN iv antibiotics awaiting culture results continue with meds pain control
--- NOTE | 2016-10-24 13:55 | PN ---
Progress Note, Physician History of Present Illness: More comfortable today No c/o abdominal pain IUD removed Vomited yesterday + Soft BM today No c/o fever/ chills Afebrile WBC improved Tolerated cephalosporin - Current Medication List Current Medications: Active Medications Heparin Sodium (Porcine) (Heparin -) 5,000 unit SQ BID [facility] Last Admin: 10/24/16 09:01 Dose: 5,000 unit Clindamycin Phosphate (Cleocin 600 Mg Premix Ivpb -) 50 mls @ 100 mls/hr IVPB Q8H-IV [facility] Last Admin: 10/24/16 09:00 Dose: 100 mls/hr Ceftriaxone Sodium 1 gm/ (Dextrose) 50 mls @ 100 mls/hr IVPB DAILY [facility] Last Admin: 10/24/16 09:01 Dose: 100 mls/hr Insulin Aspart (Novolog Vial) 0 units SQ BIDAC PRN; Protocol PRN Reason: APTT Magnesium Hydroxide (Milk Of Magnesia -) 30 ml PO DAILY PRN PRN Reason: CONSTIPATION Morphine Sulfate (Morphine Injection -) 1 mg IVPUSH Q4H PRN PRN Reason: MODERATE PAIN Last Admin: 10/23/16 22:17 Dose: 1 mg Ondansetron HCl (Zofran Injection) 4 mg IVPB Q6H PRN PRN Reason: NAUSEA Last Admin: 10/24/16 09:53 Dose: 4 mg - Objective Vital Signs: Vital Signs Temperature 98.2 F 10/24/16 10:00 Pulse Rate 73 10/24/16 10:00 Respiratory Rate 18 10/24/16 10:00 Blood Pressure 109/62 10/24/16 10:00 O2 Sat by Pulse Oximetry (%) 96 10/23/16 17:46 Constitutional: Yes: No Distress Cardiovascular: Yes: Regular Rate and Rhythm, S1, S2 Respiratory: Yes: CTA Bilaterally Gastrointestinal: Yes: Normal Bowel Sounds, Soft. No: Tenderness Edema: No Labs: CBC, BMP 10/23/16 06:00 10/23/16 06:00 INR, PTT INR 0.99 (0.82-1.09) 10/22/16 07:20 Assessment/Plan Endometritis S/P removal IUD R/P pelvic actino path/ culture pending PCN allergy Await c/s Continue clindamycin / ceftriaxone
[2016-10-25] MEDS: CLINDAMYCIN 600MG PREMIX IVPB 50 ML IVPB SCH ×3 (01:49→17:39)
--- NOTE | 2016-10-25 09:58 | PN ---
Progress Note (short form) - Note Progress Note: pt seen/ examined feels better c/c - having cramps increased urinary frequency iud removed Vital Signs Temp 98.5 F 10/24/16 22:00 Pulse 68 10/24/16 22:00 Resp 18 10/24/16 22:00 BP 129/78 10/24/16 22:00 Pulse Ox 98 10/24/16 21:00 Intake & Output 10/24/16 10/24/16 10/25/16 11:59 23:59 11:59 Intake Total 1610 1080 350 Balance 1610 1080 350 Intake: IV 1100 400 Normal Saline - 1,000 ml 1100 400 @ 100 mls/hr IV ASDIR [facility] Rx#:[id number] IVPB 50 50 Oral 460 680 300 Other: Voiding Method Toilet Toilet Toilet # Unmeasured Voids Void 2 2 1 Bowel Movement No No No CBC, BMP 10/23/16 06:00 10/23/16 06:00 Microbiology 10/22/16 15:30 Blood Culture - Preliminary Blood - Peripheral Venous NO GROWTH OBTAINED AFTER 48 HOURS, INCUBATION TO CONTINUE FOR 3 DAYS. 10/22/16 15:30 Blood Culture - Preliminary Blood - Peripheral Venous NO GROWTH OBTAINED AFTER 48 HOURS, INCUBATION TO CONTINUE FOR 3 DAYS. 10/23/16 11:15 Foreign Body Culture - Preliminary Foreign Object - Intrauterine Device 10/22/16 21:00 Urine Culture - Preliminary Urine - Urine Clean Catch Group D Strep Or Entero Coccus Physical Exam Constitutional: Yes: No Distress/ comfortable. Cardiovascular: Yes: Regular Rate and Rhythm Respiratory: Yes: CTA Bilaterally Gastrointestinal: Yes: Normal Bowel Sounds, Soft. No: Distention, Tenderness Edema: No Problem List - Problems (1) Endometritis Code(s): N71.9 - INFLAMMATORY DISEASE OF UTERUS, UNSPECIFIED (2) Dehydration Code(s): E86.0 - DEHYDRATION (3) Diabetes mellitus Code(s): E11.9 - TYPE 2 DIABETES MELLITUS WITHOUT COMPLICATIONS Qualifiers: Diabetes mellitus type: type 2 Assessment/Plan continue iv antibiotics awaiting culture results continue with meds pain control motrin for cramps daily oob - chair dvt prophylaxis will follow Problem List - Problems (1) Endometritis Code(s): N71.9 - INFLAMMATORY DISEASE OF UTERUS, UNSPECIFIED (2) NIDDY (non-insulin dependent diabetes 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
[2016-10-25] MEDS ORDERED: cefTRIAXone SODIUM 1 GM VIAL ONE (10:06)
[2016-10-25] MEDS ORDERED: DEXTROSE 5%-WATER - 50 ML IVPB ONE (10:06)
[2016-10-25] MEDS: HEPARIN NA (PORCINE) 5,000 UNITS/ML 1ML VIAL SQ SCH ×2 (10:09→21:52)
[2016-10-25] MEDS: IBUPROFEN 400 MG TABLET (FP) PO PRN (10:15)
[2016-10-25] MEDS: ONDANSETRON 4 MG/2 ML VIAL IVPB PRN (10:37)
[2016-10-25] MEDS: CEFTRIAXONE 1 GM in DEXTROSE 5%-WATER - 50 ML IVPB SCH (11:07)
--- NOTE | 2016-10-25 13:21 | PN ---
Progress Note, Physician History of Present Illness: No c/o abdominal pain + loose stool x 3 today No fever/ chills - Current Medication List Current Medications: Active Medications Heparin Sodium (Porcine) (Heparin -) 5,000 unit SQ BID [facility] Last Admin: 10/25/16 10:09 Dose: 5,000 unit Clindamycin Phosphate (Cleocin 600 Mg Premix Ivpb -) 50 mls @ 100 mls/hr IVPB Q8H-IV [facility] Last Admin: 10/25/16 10:09 Dose: 100 mls/hr Ceftriaxone Sodium 1 gm/ (Dextrose) 50 mls @ 100 mls/hr IVPB DAILY [facility] Last Admin: 10/25/16 11:07 Dose: 100 mls/hr Ibuprofen (Motrin -) 400 mg PO Q6H PRN PRN Reason: PAIN Last Admin: 10/25/16 10:15 Dose: 400 mg Insulin Aspart (Novolog Vial) 0 units SQ BIDAC PRN; Protocol PRN Reason: APTT Magnesium Hydroxide (Milk Of Magnesia -) 30 ml PO DAILY PRN PRN Reason: CONSTIPATION Morphine Sulfate (Morphine Injection -) 1 mg IVPUSH Q4H PRN PRN Reason: MODERATE PAIN Last Admin: 10/23/16 22:17 Dose: 1 mg Ondansetron HCl (Zofran Injection) 4 mg IVPB Q6H PRN PRN Reason: NAUSEA Last Admin: 10/25/16 10:37 Dose: 4 mg - Objective Vital Signs: Vital Signs Temperature 97.8 F 10/25/16 10:00 Pulse Rate 60 10/25/16 10:00 Respiratory Rate 18 10/25/16 10:00 Blood Pressure 128/55 10/25/16 10:00 O2 Sat by Pulse Oximetry (%) 97 10/25/16 09:00 Constitutional: Yes: No Distress Eyes: Yes: Conjunctiva Clear Cardiovascular: Yes: Regular Rate and Rhythm, S1, S2 Respiratory: Yes: CTA Bilaterally Gastrointestinal: Yes: Normal Bowel Sounds, Soft. No: Tenderness Edema: No Labs: CBC, BMP 10/23/16 06:00 10/23/16 06:00 INR, PTT INR 0.99 (0.82-1.09) 10/22/16 07:20 Assessment/Plan Endometritis S/P removal IUD R/O pelvic actino path/ culture pending PCN allergy Await c/s Continue clindamycin / ceftriaxone Check stool C diff Probiotic
[2016-10-25] MEDS: LACTOBACILLUS ACIDOPHILUS 1 EACH TAB (FP) PO SCH (14:16)
[2016-10-25] MEDS: FLUCONAZOLE 100 MG TABLET (UD) PO SCH (17:00)
[2016-10-26] MEDS: CLINDAMYCIN 600MG PREMIX IVPB 50 ML IVPB SCH ×2 (02:14→10:22)
[2016-10-26 07:43] LABS: BASOPHIL 0.3 % (0-2.0); EOSINOPHIL 2.1 % (0-4.5); MCH 29.1 pg (25.7-33.7); MCHC 33.4 g/dl (32.0-36.0); MEAN CELL VOLUME 87.2 fl (80-96); MEAN PLT VOLUME 7.7 fl (7.5-11.1); NEUTROPHILS 72.1 % (42.8-82.8); PLATELET COUNT 280 K/MM3 (134-434); RDW 13.6 % (11.6-15.6); WHITE BLOOD COUNT 14.1 K/mm3 (4.0-10.0)
[2016-10-26 08:31] LABS: ALBUMIN 3.5 g/dl (3.4-5.0); ALK PHOS 107 U/L (45-117); ANION GAP 9 (8-16); BILIRUBIN,TOTAL 0.4 mg/dL (0.2-1.0); CALCIUM 9.2 mg/dL (8.5-10.1); CO2 26 mmol/L (21-32); CREATININE 0.8 mg/dL (0.55-1.02); GLUCOSE,RANDOM 113 mg/dL (74-106); SGOT/AST 21 U/L (15-37); SGPT/ALT 38 U/L (12-78); TOT PROT 6.9 g/dl (6.4-8.2)
[2016-10-26] MEDS ORDERED: PT OWN MED DRAWER 7, Y5N ONE (10:14)
[2016-10-26] MEDS: LACTOBACILLUS ACIDOPHILUS 1 EACH TAB (FP) PO SCH (10:22)
[2016-10-26] MEDS: HEPARIN NA (PORCINE) 5,000 UNITS/ML 1ML VIAL SQ SCH (10:22)
--- NOTE | 2016-10-26 10:22 | PN ---
Progress Note, Physician Chief Complaint: see dc summary - Current Medication List Current Medications: Active Medications Fluconazole (Diflucan -) 100 mg PO DAILY [facility] Last Admin: 10/25/16 17:00 Dose: 100 mg Heparin Sodium (Porcine) (Heparin -) 5,000 unit SQ BID [facility] Last Admin: 10/25/16 21:52 Dose: 5,000 unit Clindamycin Phosphate (Cleocin 600 Mg Premix Ivpb -) 50 mls @ 100 mls/hr IVPB Q8H-IV [facility] Last Admin: 10/26/16 02:14 Dose: 100 mls/hr Ceftriaxone Sodium 1 gm/ (Dextrose) 50 mls @ 100 mls/hr IVPB DAILY [facility] Last Admin: 10/25/16 11:07 Dose: 100 mls/hr Ibuprofen (Motrin -) 400 mg PO Q6H PRN PRN Reason: PAIN Last Admin: 10/25/16 10:15 Dose: 400 mg Insulin Aspart (Novolog Vial) 0 units SQ BIDAC PRN; Protocol PRN Reason: APTT Lactobacillus Acidophilus (Bacid -) 1 tab PO DAILY [facility] Last Admin: 10/25/16 14:16 Dose: 1 tab Magnesium Hydroxide (Milk Of Magnesia -) 30 ml PO DAILY PRN PRN Reason: CONSTIPATION Morphine Sulfate (Morphine Injection -) 1 mg IVPUSH Q4H PRN PRN Reason: MODERATE PAIN Last Admin: 10/23/16 22:17 Dose: 1 mg Ondansetron HCl (Zofran Injection) 4 mg IVPB Q6H PRN PRN Reason: NAUSEA Last Admin: 10/25/16 10:37 Dose: 4 mg - Objective Vital Signs: Vital Signs Temperature 98.3 F 10/26/16 10:17 Pulse Rate 70 10/26/16 10:17 Respiratory Rate 20 10/26/16 10:17 Blood Pressure 114/66 10/26/16 10:17 O2 Sat by Pulse Oximetry (%) 97 10/26/16 09:00 Labs: CBC, BMP 10/26/16 06:50 10/26/16 06:50 INR, PTT INR 0.99 (0.82-1.09) 10/22/16 07:20 Problem List - Problems (1) Endometritis Code(s): N71.9 - INFLAMMATORY DISEASE OF UTERUS, UNSPECIFIED (2) Dehydration Code(s): E86.0 - DEHYDRATION (3) Diabetes mellitus Code(s): E11.9 - TYPE 2 DIABETES MELLITUS WITHOUT COMPLICATIONS Qualifiers: Diabetes mellitus type: type 2
[2016-10-26] MEDS: FLUCONAZOLE 100 MG TABLET (UD) PO SCH (10:23)
[2016-10-26] MEDS ORDERED: PANTOPRAZOLE 40 MG TABLET (FP) PO SCH (11:00)
[2016-10-26] MEDS ORDERED: DEXTROSE 5%-WATER - 50 ML IVPB ONE (11:02)
[2016-10-26] MEDS ORDERED: cefTRIAXone SODIUM 1 GM VIAL ONE (11:02)
[2016-10-26] MEDS: ONDANSETRON 4 MG/2 ML VIAL IVPB PRN (11:06)
[2016-10-26] MEDS: CEFTRIAXONE 1 GM in DEXTROSE 5%-WATER - 50 ML IVPB SCH (11:06)
[2016-10-26] MEDS: IBUPROFEN 400 MG TABLET (FP) PO PRN (14:23)
--- NOTE | 2016-10-26 14:59 | PN ---
Progress Note, Physician History of Present Illness: No c/o abdominal pain Soft BMs No c/o vaginal discharge No c/o fever/ chills - Current Medication List Current Medications: Active Medications Fluconazole (Diflucan -) 100 mg PO DAILY [facility] Last Admin: 10/26/16 10:23 Dose: 100 mg Heparin Sodium (Porcine) (Heparin -) 5,000 unit SQ BID [facility] Last Admin: 10/26/16 10:22 Dose: 5,000 unit Clindamycin Phosphate (Cleocin 600 Mg Premix Ivpb -) 50 mls @ 100 mls/hr IVPB Q8H-IV [facility] Last Admin: 10/26/16 10:22 Dose: 100 mls/hr Ceftriaxone Sodium 1 gm/ (Dextrose) 50 mls @ 100 mls/hr IVPB DAILY [facility] Last Admin: 10/26/16 11:06 Dose: 100 mls/hr Ibuprofen (Motrin -) 400 mg PO Q6H PRN PRN Reason: PAIN Last Admin: 10/26/16 14:23 Dose: 400 mg Insulin Aspart (Novolog Vial) 0 units SQ BIDAC PRN; Protocol PRN Reason: APTT Lactobacillus Acidophilus (Bacid -) 1 tab PO DAILY [facility] Last Admin: 10/26/16 10:22 Dose: 1 tab Magnesium Hydroxide (Milk Of Magnesia -) 30 ml PO DAILY PRN PRN Reason: CONSTIPATION Morphine Sulfate (Morphine Injection -) 1 mg IVPUSH Q4H PRN PRN Reason: MODERATE PAIN Last Admin: 10/23/16 22:17 Dose: 1 mg Ondansetron HCl (Zofran Injection) 4 mg IVPB Q6H PRN PRN Reason: NAUSEA Last Admin: 10/26/16 11:06 Dose: 4 mg Pantoprazole Sodium (Protonix -) 40 mg PO DAILY [facility] Last Admin: 10/26/16 11:06 Dose: 40 mg - Objective Vital Signs: Vital Signs Temperature 98.3 F 10/26/16 10:17 Pulse Rate 70 10/26/16 10:17 Respiratory Rate 20 10/26/16 10:17 Blood Pressure 114/66 10/26/16 10:17 O2 Sat by Pulse Oximetry (%) 97 10/26/16 09:00 Constitutional: Yes: No Distress Eyes: Yes: Conjunctiva Clear Cardiovascular: Yes: Regular Rate and Rhythm, S1, S2 Respiratory: Yes: CTA Bilaterally Gastrointestinal: Yes: Normal Bowel Sounds, Soft. No: Tenderness Edema: No Labs: CBC, BMP 10/26/16 06:50 10/26/16 06:50 INR, PTT INR 0.99 (0.82-1.09) 10/22/16 07:20 Assessment/Plan Endometritis S/P removal IUD R/O pelvic actino path/ culture pending PCN allergy Substitute po clinda 300mg tid + levaquin 500mg qd x 7d Probiotic Will see in office one week
--- NOTE | 2016-10-26 16:02 | DS ---
Physical Examination Vital Signs: Vital Signs Temperature 98.7 F 10/26/16 14:36 Pulse Rate 72 10/26/16 14:36 Respiratory Rate 20 10/26/16 14:36 Blood Pressure 107/50 10/26/16 14:36 O2 Sat by Pulse Oximetry (%) 97 10/26/16 09:00 Constitutional: Yes: No Distress Cardiovascular: Yes: Regular Rate and Rhythm Respiratory: Yes: CTA Bilaterally Gastrointestinal: Yes: Normal Bowel Sounds, Soft. No: Distention, Tenderness Edema: No Labs: CBC, BMP 10/26/16 06:50 10/26/16 06:50 Discharge Summary Reason For Visit: ENDOMETRITIS Current Active Problems Diabetes mellitus (Acute) Endometritis (Acute) Hospital Course: ADmitted for abdominal pain Found to have endometritis-- IUD removed-- on Iv antibiotics Seen by ID, Surgery and OBGYN culture came back positive for yeast, grD enterococcus has hepatosplenomegaly on CT -- CBC, platelets, LFT normal has previous work up with Dr oro and Dr Martínez-- Hematology and GI respectively-pt will be following up with repeat ultrasound with me after completion of antibiotics to further assess hepatosplenomegaly stable for dc home - Instructions Diet, Activity, Other Instructions: Patient was admitted on 10/22/16-10/26/16. Patient advised to stay home from work and may return to work on 11/02/16 without restrictions. Referrals: Alex Miles MD [Primary Care Provider] - Reji Akers MD [Staff Physician] - 1 Week Disposition: HOME - Home Medications Comprehensive Discharge Medication List: Ambulatory Orders Lisinopril [Zestril] 2.5 mg PO DAILY 10/22/16 Clindamycin [Cleocin -] 300 mg PO TID #21 capsule 10/26/16 Fluconazole [Diflucan -] 100 mg PO DAILY #7 tablet 10/26/16 Lactobacillus Acidophilus [Bacid -] 1 tab PO DAILY #14 tab 10/26/16 Levofloxacin [Levaquin] 500 mg PO DAILY #7 tablet 10/26/16 Ondansetron [Zofran *Odt*] 8 mg SL BID PRN #10 od.tablet 10/26/16 Pantoprazole Sodium [Protonix -] 40 mg PO DAILY #14 tab 10/26/16
[2016-10-26 19:03] VITALS: BP 114/52; PULSE 52; TEMP 98
== END 2016-10-26 18:02 | disposition home or self-care (01) | DRG 700 ==
LOC: JER 05:58 → JERBED 12:34 → OBSVTOIN 13:09 → INTOOBSV 13:09 → J5S 14:24
PROVIDERS: ADMIT Internal Medicine; ATTEND Internal Medicine
PROC: 0UPDXHZ Removal of Contraceptive Device from Uterus and Cervix, External Approach (ICD-10-PCS; principal; 2016-10-23)
DX: T83.69XA Infection and inflammatory reaction due to other prosthetic device, implant and graft in genital tract, initial encounter (principal); N71.9 Inflammatory disease of uterus, unspecified; B95.2 Enterococcus as the cause of diseases classified elsewhere; E78.5 Hyperlipidemia, unspecified; E88.81 Metabolic syndrome and other insulin resistance; R16.2 Hepatomegaly with splenomegaly, not elsewhere classified; K76.0 Fatty (change of) liver, not elsewhere classified; K43.2 Incisional hernia without obstruction or gangrene; E11.9 Type 2 diabetes mellitus without complications; E66.8 Other obesity; Z68.34 Body mass index [BMI] 34.0-34.9, adult; E86.0 Dehydration; K42.9 Umbilical hernia without obstruction or gangrene; R10.2 Pelvic and perineal pain; Z88.0 Allergy status to penicillin; Y84.8 Other medical procedures as the cause of abnormal reaction of the patient, or of later complication, without mention of misadventure at the time of the procedure; Y92.89 Other specified places as the place of occurrence of the external cause
CPT/HCPCS: 36415; 74177-TC; 76830-TC; 80053; 80076; 81003; 81015; 83605; 83690; 83735; 84703; 85025; 85610; 85651; 85730; 86140; 86850; 86900; 86901; 87040; 87070; 87086; 87186; 87389; 99283-25; G0378; J1644; Q9967

== ENCOUNTER 2017-06-17 05:20 | Day surgery (SDC) | payer OTHER ==
[2017-06-16 12:01] VITALS: BMI 29.7
[2017-06-18 09:07] VITALS: BP 107/54; PULSE 81; TEMP 98.7
== END 2017-06-18 13:26 | disposition home or self-care (01) ==
LOC: JASUSAT 05:20 → JASU-SURG 05:20 → J8W 20:20 → JASUSAT 06-18 13:26
PROVIDERS: ATTEND Surgery
PROC: 0WUF0JZ Supplement Abdominal Wall with Synthetic Substitute, Open Approach (ICD-10-PCS; principal; 2017-06-17)
DX: K43.2 Incisional hernia without obstruction or gangrene (principal)
CPT/HCPCS: 82962; 84703; 88302-TC; 94010; 94760; J1644

== ENCOUNTER 2018-08-27 18:53 | Inpatient (IN) | payer OTHER ==
[2018-08-27] MEDS ORDERED: ONDANSETRON 4 MG/2 ML VIAL IVPUSH ONE (21:13)
[2018-08-27] MEDS ORDERED: morphine CARPU-JECT 4 MG/1 ML DISP.SYRIN IVPUSH ONE (21:13)
[2018-08-27] MEDS ORDERED: SODIUM CHLORIDE 0.9% 500 ML INFUS.BAG IV ONE (21:13)
[2018-08-27] MEDS ORDERED: ONDANSETRON 4 MG/2 ML VIAL ONE (21:19)
[2018-08-27] MEDS ORDERED: morphine SULFATE 4 MG/ML VIAL ONE (21:19)
[2018-08-27 22:00] LABS: BASO % 0.2 % (0-2.0); EOS % 1.8 % (0-4.5); HEMATOCRIT 43.6 % (32.4-45.2); HEMOGLOBIN 14.7 GM/dL (10.7-15.3); LYMPH % 21.7 % (8-40); MCH 30.5 pg (25.7-33.7); MCHC 33.7 g/dl (32.0-36.0); MEAN CELL VOLUME 90.7 fl (80-96); MEAN PLT VOLUME 8.2 fl (7.5-11.1); MONO % 6.2 % (3.8-10.2); NEUT % 70.1 % (42.8-82.8); RBC 4.81 M/mm3 (3.60-5.2); RDW 13.6 % (11.6-15.6); WHITE BLOOD COUNT 14.5 K/mm3 (4.0-10.0)
[2018-08-27 22:05] LABS: PH,URINE 5.5 (5.0-8.0); URINE APPEARANCE CLEAR; URINE BILIRUBIN NEGATIVE (NEGATIVE); URINE COLOR YELLOW; URINE GLUCOSE (UA) 2+ (NEGATIVE); URINE KETONE NEGATIVE (NEGATIVE); URINE LEUK ESTERASE NEGATIVE (NEGATIVE); URINE NITRITE NEGATIVE (NEGATIVE); URINE PROTEIN NEGATIVE (NEGATIVE)
[2018-08-27 22:08] LABS: PLATELET COUNT 278 K/MM3 (134-434)
[2018-08-27 22:17] LABS: ALBUMIN 3.9 g/dl (3.4-5.0); BILIRUBIN,TOTAL 0.3 mg/dL (0.2-1); BLOOD UREA NITROGEN 13.5 mg/dL (7-18); CALCIUM 9.1 mg/dL (8.5-10.1); CREATININE 0.8 mg/dL (0.55-1.3); POTASSIUM 4.2 mmol/L (3.5-5.1); TOT PROT 7.3 g/dl (6.4-8.2)
[2018-08-27 22:19] LABS: PROTHROMBIN TIME (PATIENT) 11.8 SEC (9.7-13.0)
--- NOTE | 2018-08-27 22:54 | PDOC ---
History of Present Illness - General Chief Complaint: Pain Stated Complaint: PAIN Time Seen by Provider: 08/27/18 21:07 History Source: Patient Exam Limitations: No Limitations - History of Present Illness Initial Comments: 08/27/18 22:48 Patient is a 43-year-old female with history of diabetes on metformin, diverticulosis, diverticulitis, status post bowel resection, complaining of left -sided abdominal pain 4 days assisted with nausea. Patient states that it was a gradual onset of pain now 9/10, sharp, constant with no alleviating or aggravating factors. States she has not had a bowel movement in a few days. She took milk of magnesia and a laxative states she's passed a small amount of stool but for a day she has not had any bowel movement at all. PMHX: Above PSOCHX: neg etoh, cig, drug ALL: PCN, Zosyn GENERAL/CONSTITUTIONAL: No fever or chills. No weakness. No weight change. HEAD, EYES, EARS, NOSE AND THROAT: No change in vision. No ear pain or discharge. No sore throat. CARDIOVASCULAR: No chest pain or shortness of breath. RESPIRATORY: No cough, wheezing, or hemoptysis. GASTROINTESTINAL: No nausea, vomiting, diarrhea or constipation. No rectal bleeding. GENITOURINARY: No dysuria, frequency, or change in urination. MUSCULOSKELETAL: No joint or muscle swelling or pain. No neck or back pain. SKIN AND BREASTS: No rash or easy bruising. NEUROLOGIC: No headache, vertigo, loss of consciousness, or loss of sensation. PSYCHIATRIC: No depression or anxiety. ENDOCRINE: No increased thirst. No abnormal weight change. HEMATOLOGIC/LYMPHATIC: No anemia, easy bleeding, or history of blood clots. ALLERGIC/IMMUNOLOGIC: No hives or skin allergy. No latex allergy. GENERAL: The patient is awake, alert, and fully oriented, in moderate painful distress. HEAD: Normal with no signs of trauma. EYES: Pupils equal, round and reactive to light, extraocular movements intact, sclera anicteric, conjunctiva clear. ENT: Ears normal, nares patent, oropharynx clear without exudates. Moist mucous membranes. NECK: Normal range of motion, supple without lymphadenopathy, JVD, or masses. LUNGS: Breath sounds equal, clear to auscultation bilaterally. No wheezes, and no crackles. HEART: Regular rate and rhythm, normal S1 and S2 without murmur, rub. ABDOMEN: Soft, moderately tender in the left side abdomen, hypoactive bowel sounds. (+) guarding, no rebound. No masses. EXTREMITIES: Normal range of motion, no edema. No clubbing or cyanosis. No cords, erythema, or tenderness. NEUROLOGICAL: Cranial nerves II through XII grossly intact. Normal speech, normal gait. PSYCH: Normal mood, normal affect. SKIN: Warm, Dry, normal turgor, no rashes or lesions noted. Past History - Past Medical History Allergies/Adverse Reactions: Allergies Allergy/AdvReac Type Severity Reaction Status Date / Time Penicillins Allergy Hives Verified 08/27/18 18:58 piperacillin sodium Allergy "hives" Verified 08/27/18 18:58 [From Zosyn] tazobactam sodium Allergy Hives Verified 08/27/18 18:58 [From Zosyn] Home Medications: Ambulatory Orders Lisinopril [Zestril] 2.5 mg PO DAILY 10/22/16 Dapagliflozin Propanediol [Farxiga] 10 mg PO DAILY 06/16/17 Ezetimibe [Zetia] 10 mg PO DAILY 06/16/17 Chlorpromazine [Thorazine -] 100 mg PO DAILY 08/27/18 Fluoxetine HCl [Prozac] 20 mg PO DAILY 08/27/18 [place]-3/Dha/Epa/Fish Oil [Fish Oil 1,000 mg Softgel] 1 each PO DAILY 08/27/18 metFORMIN HCL [Metformin HCl ER] 750 mg PO DAILY 08/27/18 Anemia: No Asthma: No Cancer: No Cardiac Disorders: No CVA: No COPD: No CHF: No Dementia: No Diabetes: Yes (NIDDM) GI Disorders: No Disorders: No HTN: No Hypercholesterolemia: Yes Liver Disease: No Seizures: No Thyroid Disease: No - Surgical History Abdominal Surgery: (sigmoidectomy-diverticulitis) - Family Disease History Family Disease History: Diabetes: Father - Suicide/Smoking/Psychosocial Hx Smoking History: Never smoked Have you smoked in the past 12 months: No Number of Cigarettes Smoked Daily: 0 Hx Alcohol Use: Yes (occas) Drug/Substance Use Hx: No Substance Use Type: Alcohol Hx Substance Use Treatment: No Abd/GI Specific PMHX - Complaint Specific PMHX Colitis: No Diverticulitis: No Gall Bladder Disease: No GERD: No Hepatitis: No Irritable Bowel Synd (IBS): No Pancreatitis: No GI Ulcer Disease: No *Physical Exam - Vital Signs Last Vital Signs Temp Pulse Resp BP Pulse Ox 98.4 F 64 18 124/73 96 08/27/18 20:55 08/27/18 20:55 08/27/18 20:55 08/27/18 20:55 08/27/18 20:55 ED Treatment Course - LABORATORY CBC & Chemistry Diagram: 08/27/18 21:30 08/27/18 21:30 - ADDITIONAL ORDERS Additional order review: Laboratory Results 08/27/18 08/27/18 08/27/18 21:30 21:30 21:30 PT with INR INR Sodium Potassium Chloride Carbon Dioxide Anion Gap BUN Creatinine Est GFR (CKD-EPI)AfAm Est GFR (CKD-EPI)NonAf Random Glucose Lactic Acid 1.3 Calcium Total Bilirubin AST ALT Alkaline Phosphatase Total Protein Albumin Urine Color Yellow Urine Appearance Clear Urine pH 5.5 Ur Specific [place] 1.037 H Urine Protein Negative Urine Glucose (UA) 2+ H Urine Ketones Negative Urine Blood Negative Urine Nitrite Negative Urine Bilirubin Negative Urine Urobilinogen 1.0 Ur Leukocyte Esterase Negative Urine HCG, Qual Negative Stool Occult Blood 08/27/18 08/27/18 08/27/18 21:30 21:30 21:30 PT with INR 11.80 INR 1.00 Sodium 139 Potassium 4.2 Chloride 106 Carbon Dioxide 25 Anion Gap 8 BUN 13.5 Creatinine 0.8 Est GFR (CKD-EPI)AfAm 104.65 Est GFR (CKD-EPI)NonAf 90.30 Random Glucose 101 Lactic Acid Calcium 9.1 Total Bilirubin 0.3 AST 14 L ALT 23 Alkaline Phosphatase 90 Total Protein 7.3 Albumin 3.9 Urine Color Urine Appearance Urine pH Ur Specific [place] Urine Protein Urine Glucose (UA) Urine Ketones Urine Blood Urine Nitrite Urine Bilirubin Urine Urobilinogen Ur Leukocyte Esterase Urine HCG, Qual Stool Occult Blood Negative 08/27/18 21:30 RBC 4.81 MCV 90.7 MCHC 33.7 RDW 13.6 MPV 8.2 Neutrophils % 70.1 Lymphocytes % 21.7 Monocytes % 6.2 Eosinophils % 1.8 Basophils % 0.2 - RADIOLOGY Radiology Studies Ordered: Category Date Time Status ABDOMEN & PELVIS CT WITH CONTR [CT] Stat CT Scan 08/27/18 21:18 Taken - Medications Given in the ED: ED Medications Discontinued Medications Generic Name Dose Route Start Last Admin Trade Name Frantz PRN Reason Stop Dose Admin Morphine Sulfate 4 mg 08/27/18 21:13 08/27/18 21:28 Morphine Injection - IVPUSH 08/27/18 21:14 4 mg ONCE ONE Administration Ondansetron HCl 4 mg 08/27/18 21:13 08/27/18 21:28 Zofran Injection IVPUSH 08/27/18 21:14 4 mg ONCE ONE Administration Sodium Chloride 1,000 ml 08/27/18 21:13 08/27/18 21:28 Normal Saline - IV 08/27/18 21:14 1,000 ml ONCE ONE Administration Medical Decision Making - Medical Decision Making 08/27/18 22:48 Patient is a 43-year-old female with history of diabetes on metformin, diverticulosis, diverticulitis, status post bowel resection, complaining of left -sided abdominal pain 4 days. Patient states that it was a gradual onset of pain now 9/10, sharp, constant with no alleviating or aggravating factors. States she has not had a bowel movement in a few days. She took milk of magnesia and a laxative states she's passed a small amount of stool but for a day she has not had any bowel movement at all. Patient with prior surgery in the abdomen at risk for bowel obstruction. Labs, pain meds, IV fluids, CT scan abdomen pelvis. Will most likely admit Laboratory Tests 08/27/18 21:30 WBC 14.5 H Hgb 14.7 Hct 43.6 Plt Count 278 Patient Full Name: ISAMAR PADILLA Patient Accession No: [id number] Patient : 1975 Reason for Exam: r/o obst Referring Physician: RANDY PENN Findings were discussed by telephone with JAN Romano, Physician Entrepreneurial Finance Professor at TueAugust 28 2018 01:11:24 EDT. Patient has elevated white count, which increases the likelihood of early acute appendicitis, but pain is left-sided. A short-term followup CT of the pelvis may be useful to reassess for acute appendicitis or early acute diverticulitis. Also advise surgical consultation. One or more of the following dose reduction techniques were used: automated exposure control, adjustment of the mA and/or kV according to patient size, use of iterative reconstructive technique. THIS DOCUMENT HAS BEEN ELECTRONICALLY SIGNED Lindsey Sy M.D. 08/28/2018 01:16 SHERI Gusman. Please call Imaging [facility] Consultant [phone] with questions. INTERPRETING RADIOLOGIST: Lindsey Sy MD Electronically Signed: Aug 28, 2018 01:18AM EDT Patient Full Name: ISAMAR PADILLA Patient Accession No: [id number] Patient : 1975 Reason for Exam: r/o obst Referring Physician: Patient Name: RANDY PENN THIS IS A PRELIMINARY REPORT FROM [facility] DATE OF SERVICE: 2018-08-27 22:23:09 IMAGES: [id number] EXAM: CT ABDOMEN AND PELVIS WITH CONTRAST 1.1 cm diameter mid appendix containing fluid or mucus. Distal appendix tapers normally to 6 mm. No periappendiceal inflammation. Findings could represent appendiceal mucocele or normal variation. Early acute appendicitis is considered less likely, but correlate clinically (is there fever, leukocytosis, or right lower quadrant pain?). If clinically indicated, consider repeat CT of pelvis to assess for evolving inflammation, and advise surgical consultation. Surgical changes sigmoid colon. Diverticulosis colon without acute diverticulitis. No bowel obstruction, colitis, or free air. Unremarkable pancreas, kidneys and gallbladder. Trace physiologic free fluid right adnexa. Small shallow infraumbilical hernia containing nondilated small bowel loops. One or more of the following dose reduction techniques were used: automated exposure control, adjustment of the mA and/or kV according to patient size, use of iterative reconstructive technique. THIS DOCUMENT HAS BEEN ELECTRONICALLY SIGNED Lindsey Sy M.D. 08/28/2018 00:46 SHERI Gusman. Please call Imaging Wine Consultant [phone] with questions. INTERPRETING RADIOLOGIST: Lindsey Sy MD Electronically Signed: Aug 28, 2018 12:48AM ED Called by the radiologist about findings of possible early appendicitis. Patient complaining of pain still located on the left side of her abdomen given morphine 4 mg IV. patient to be admitted the hospitalist *DC/Admit/Observation/Transfer Diagnosis at time of Disposition: Intractable abdominal pain - Discharge Dispostion Condition at time of disposition: Stable Decision to Admit order: Yes - Referrals - Patient Instructions - Post Discharge Activity
[2018-08-28] MEDS ORDERED: morphine CARPU-JECT 4 MG/1 ML DISP.SYRIN IVPUSH ONE (01:54)
[2018-08-28] MEDS ORDERED: morphine SULFATE 4 MG/ML VIAL ONE (02:04)
--- NOTE | 2018-08-28 04:54 | HP ---
Admitting History and Physical - Primary Care Physician PCP: Not on file ([facility]) - Admission Chief Complaint: Abdominal pain/vomiting History of Present Illness: Patient is a 43-year-old female with history of HLD, HTN, psych problems, diabetes on metformin, diverticulosis, diverticulitis, status post bowel resection, presenting with left-sided abdominal pain 4 days. Pt usually has recurrent abdominal pain and feeling of abdominal discomfort related to her constipation. Pt normally passes stool every 2-3 days. Her last bowel movement was last Tuesday, described as black, non bloody. On Tuesday evening after dinner at about 6pm, Pt developed vomiting x 4 episodes of recently ingested food, prior to coming to the ED. Over the past week, she has had the worsening lower abdominal pain 12/07 with associated gaseous feeling not relieved this time with magnesium oxide. Pt had diverticulosis with colectomy and primary anastomoses in the past and subsequent incisional hernia with mesh repair, last done by Dr Nuñez in 2017. Pt now has her PCP in [facility] with her GI also in [facility]. Last colonoscopy scheduled 3 years ago with polpectomy done and next GI appointment scheduled for September 06. WBC-14 UA- Glu 2+ CTAP:Diverticulosis of colon w/o acute diverticulitis. No bowel obstruction, colitis or free air. Trace physiologic free fluid R adnexa. 1.1 cm mid appendix containignfluid or mucus. Nl distal appendix to 6mm. No periappendiceal inflammation. Findings could represent appendiceal mucocele or nl variation. Consider repeat CT pelvis with surgical consultation History Source: Patient, Medical Record Limitations to Obtaining History: No Limitations - Past Medical History Cardiovascular: Yes: Hyperlipdemia. No: AFIB, Aneurysm, Aortic Insufficiency, Aortic Stenosis, CAD, CHF, Deep Vein Thrombosis, HTN, VA, Mitral Insufficiency, Mitral Stenosis, Murmur, Pulmonary Hypertension, Other Gastrointestinal: Yes: Diverticulitis, Other (METABOLIC SYNDROME) Hepatobiliary: Yes: Other (FATTY LIVER). No: Cirrhosis, Cholelithiasis, Cholecystitis, Choledocholithiasis, Hepatitis A, Hepatitis B, Hepatitis C ...LMP: 11/14/14 Endocrine: Yes: Diabetes Mellitus, Other (METABOLIC SYNDROME). No: [place]'s Disease, Santo's Disease, Diabetes Insipidus, Hyperparathyroidism, Hyperthyroidism, Hypothyroidism, Osteopenia, SIADH - Smoking History Smoking history: Current every day smoker Have you smoked in the past 12 months: Yes Aproximately how many cigarettes per day: 10 - Alcohol/Substance Use Hx Alcohol Use: Yes (occas) - Social History ADL: Independent History of Recent Travel: No Home Medications - Allergies Allergies/Adverse Reactions: Allergies Allergy/AdvReac Type Severity Reaction Status Date / Time Penicillins Allergy Hives Verified 08/27/18 18:58 piperacillin sodium Allergy "hives" Verified 08/27/18 18:58 [From Zosyn] tazobactam sodium Allergy Hives Verified 08/27/18 18:58 [From Zosyn] - Home Medications Home Medications: Ambulatory Orders Lisinopril [Zestril] 2.5 mg PO DAILY 10/22/16 Dapagliflozin Propanediol [Farxiga] 10 mg PO DAILY 06/16/17 Ezetimibe [Zetia] 10 mg PO DAILY 06/16/17 Chlorpromazine [Thorazine -] 100 mg PO DAILY 08/27/18 Fluoxetine HCl [Prozac] 20 mg PO DAILY 08/27/18 [place]-3/Dha/Epa/Fish Oil [Fish Oil 1,000 mg Softgel] 1 each PO DAILY 08/27/18 metFORMIN HCL [Metformin HCl ER] 750 mg PO DAILY 08/27/18 Azithromycin 250 tab PO 08/28/18 Fluconazole 150 mg PO WEEKLY 08/28/18 traZODone HCL [Trazodone HCl] 100 mg PO 08/28/18 Family Disease History - Family Disease History Family Disease History: CA: Father Review of Systems - Review of Systems Constitutional: reports: Loss of Appetite. denies: Diaphoresis HENT: denies: Difficult Swallowing Neck: denies: Stiffness, Swollen Glands Cardiovascular: reports: Palpitations. denies: Chest Pain Respiratory: reports: Cough Physical Examination Vital Signs: Vital Signs Temperature 98.8 F 08/28/18 04:29 Pulse Rate 56 L 08/28/18 04:29 Respiratory Rate 18 08/28/18 04:29 Blood Pressure 116/42 L 08/28/18 04:29 O2 Sat by Pulse Oximetry (%) 97 08/28/18 04:29 Constitutional: Yes: Well Nourished, No Distress, Calm Eyes: Yes: Conjunctiva Clear, PERRL. No: Sclera Icterus HENT: Yes: Atraumatic. No: Pharyngeal Erythema, Thrush, Tonsillar Exudate Neck: Yes: Supple Cardiovascular: Yes: Regular Rate and Rhythm, S1, S2 Respiratory: Yes: CTA Bilaterally. No: Rales, Rhonchi, SOB, SOB on Exertion, Wheezes Gastrointestinal: Yes: Soft, Hyperactive Bowel Sounds, Tenderness (Lower abdomen > LLQ) ...Rectal Exam: Yes: Guaiac Negative, Sphincter Tone Normal, Other (skin tag at 6 oclock, semi-wellformed scanty stool in rectal vault, mobile mucosa, no palpable masses, gloved finger with brown stool, no hematochezia). No: Hemorrhoids/External, Hemorrhoids/Internal, Mass Renal/: No: CVA Tenderness - Left, CVA Tenderness - Right Musculoskeletal: Yes: Muscle Pain. No: Joint Stiffness, Joint Swelling, Muscle Weakness Extremities: Yes: WNL Edema: No Peripheral Pulses WNL: Yes Integumentary: Yes: Petechiae. No: Jaundice, Laceration, Pressure Ulcer Neurological: Yes: Alert, Oriented. No: Aphasia, Dysarthria, Facial Droop, Pre- Existing Deficit, Tremors Labs: CBC, BMP 08/27/18 21:30 08/27/18 21:30 Imaging - Results Cat Scan: Report Reviewed Assessment/Plan Ambulatory Orders Lisinopril [Zestril] 2.5 mg PO DAILY 10/22/16 Dapagliflozin Propanediol [Farxiga] 10 mg PO DAILY 06/16/17 Ezetimibe [Zetia] 10 mg PO DAILY 06/16/17 Chlorpromazine [Thorazine -] 100 mg PO DAILY 08/27/18 Fluoxetine HCl [Prozac] 20 mg PO DAILY 08/27/18 [place]-3/Dha/Epa/Fish Oil [Fish Oil 1,000 mg Softgel] 1 each PO DAILY 08/27/18 metFORMIN HCL [Metformin HCl ER] 750 mg PO DAILY 08/27/18 Current Medications Acetaminophen (Ofirmev Injection -) 1,000 mg IVPB Q6H PRN PRN Reason: PAIN Last Admin: 08/28/18 08:41 Dose: 1,000 mg Chlorpromazine HCl (Thorazine -) 100 mg PO DAILY LUCY Ezetimibe (Zetia -) 10 mg PO DAILY LUCY Fluoxetine HCl (Prozac -) 20 mg PO DAILY LUCY Hydromorphone HCl (Dilaudid Injection -) 1 mg IVPUSH Q6H [facility] Last Admin: 08/28/18 07:43 Dose: Not Given Dextrose/Lactated Ringer's (D5-Lr+20 Meq Kcl -) 20 meq in 1,000 mls @ 83 mls/ hr IV ASDIR [facility] Last Admin: 08/28/18 08:06 Dose: 83 mls/hr Insulin Aspart (Novolog Vial Sliding Scale -) 1 vial SQ Q4HPO [facility]; Protocol Last Admin: 08/28/18 07:54 Dose: Not Given Lisinopril (Prinivil) 2.5 mg PO DAILY [facility] Patient is a 43-year-old female with history of HLD, HTN, psych problems, diabetes on metformin, diverticulosis, diverticulitis, status post bowel resection, presenting with left-sided abdominal pain 4 days. Diverticulosis Noted on CTAP w/o diverticulitis Pt with prior hx Last colonoscopy 3 years prior Follows GI in [facility] No indication for AB at this time LRd5 NPO Had colectomy in past surgical Hernia repair in past x 2 Negative fecal occult #Constipation Last bowel movement on Tuesday No obstruction noted on imaging NPO for now #R/O Acute appendicitis Pt saw Dr Nuñez in past-Consult Will defer further imaging to sx Dm Hold PO metformin ISS Q4H BGM Q4H LRD5 @83 while NPO #diverticulitis Hx of diverticulitis Pt with elevated WBC, Imaging indicating diverticulosis without diverticulitis Pending final report Pt with pain relieved with medication Will hold off AB for now Pain mx with tylenol/dilaudid HTN Cont lisinopril Bipolar disease Cont thorazine/fluoxetine Tobacco use Pt refuses nicotine patch NPO LRD5@83 Monitor lytes, calcium repelted NPO SCDs Hold off chemical prophylaxis Visit type - Emergency Visit Emergency Visit: Yes ED Registration Date: 08/28/18 Care time: The patient presented to the Emergency Department on the above date and was hospitalized for further evaluation of their emergent condition. - New Patient This patient is new to me today: Yes Date on this admission: 08/28/18 - Critical Care Critical Care patient: No
--- NOTE | 2018-08-28 05:47 | PN ---
Teaching Attending Note Name of Resident: Pau Blake ATTENDING PHYSICIAN STATEMENT I saw and evaluated the patient. I reviewed the resident's note and discussed the case with the resident. I agree with the resident's findings and plan as documented. SUBJECTIVE: Seen and examined; please refer to resident note for further historical information. Briefly, this is a 43 y/o female with a PMH significant for HTN, HLD, Psych, DM (on metformin). She comes in complaining of abdominal pain worse over the past several days that is accompanied by constipation. She is afebrile and hemodynamically stable. She interestingly complains of L-sided pain. She has a history of diverticulitis and had multiple episodes resulting in her CT shows a 1.1cm diameter mid appendix containing fluid or mucus; could be mucocele or normal variation. Radiology commented that early appendicitis is less likely but required clinical correlation and possible repeat CT. Incidentally found a small infraumbilical hernia with nondilated small bowel loops. Dr. Nuñez will be consulted and she will be brought to the floor on the medicine service. 10 sys ROS done and negative aside from HPI PMH, PSH, FH, SH reviewed Home Medications Medication Instructions Recorded Lisinopril [Zestril] 2.5 mg PO DAILY 10/22/16 Dapagliflozin Propanediol [Farxiga] 10 mg PO DAILY 06/16/17 Ezetimibe [Zetia] 10 mg PO DAILY 06/16/17 Chlorpromazine [Thorazine -] 100 mg PO DAILY 08/27/18 Fluoxetine HCl [Prozac] 20 mg PO DAILY 08/27/18 [place]-3/Dha/Epa/Fish Oil [Fish Oil 1 each PO DAILY 08/27/18 1,000 mg Softgel] metFORMIN HCL [Metformin HCl ER] 750 mg PO DAILY 08/27/18 OBJECTIVE: VS, labs, imaging reviewed NAD, AAO, resting in bed. In good spirits NC AT EOMI PERRLA RRR s1/2 no mgr Lungs CTAB, w/ sym exp Tender on L-side without rebound or guarding. Prelim CT discussed in HPI; awaiting final read EKG reviewed CXR reviewed ASSESSMENT AND PLAN: Patient is a 43 y/o female with a complex surgical history presenting with L- sided abdominal pain found to have ? early appendicitis. 1) Abdominal Pain -Afebrile and hemodynamically stable; she has a white count but has had a white count at every encounter here similar to her current level since 2015. Her abdomen has some L-sided tenderness but is non-surgical. Has a reducible infrumbilical hernia and has bowel sounds and the loops arent dilated on CT; would have been helpful to have contrasted study as she does have risk for obstruction with current constipation given her prior surgical history. -Consulting Dr. Nuñez; followup surgical recs -?Early appy vs. mucocele, etc. on scan. No diverticulitis noted. Could consider repeating a CT scan with PO contrast but will defer to Dr. Nuñez. -NPO, pain control, IVF, type and screen. Got abx in the ER; will hold off further doses until seen by sgy. Serial abdominal exams. 2) Hx recurring Diverticulitis/Current diverticulosis -h/o DM, diverticulitis s/p sigmoidectomy, s/p incisional hernia repair with Dr. Nuñez. No diverticulitis on prelim read. Will followup. 3) Hx HTN -Continue home meds 4) Hx HLD -Continue home meds 5) Hx Psych -Continue home meds 6) Infraumbilical hernia -Noted on CT prelim; FU with sgy recs Full Code
[2018-08-28] MEDS ORDERED: HYDROmorphone HCL CARPU-JECT 2 MG/1 ML DISP.SYRIN IVPUSH SCH (06:00)
[2018-08-28 06:24] VITALS: BMI 29.6
[2018-08-28] MEDS: INSULIN SLIDING SCALE (NOVOLOG) 1 VIAL SQ SCH ×5 (07:54→22:00)
[2018-08-28] MEDS: D5-LR+20 MEQ KCL - 20 MEQ/1,000 ML INFUS.BAG IV SCH ×2 (08:06→23:43)
[2018-08-28 08:26] LABS: BASO % 0.3 % (0-2.0); EOS % 3.1 % (0-4.5); HEMATOCRIT 40.7 % (32.4-45.2); HEMOGLOBIN 13.6 GM/dL (10.7-15.3); LYMPH % 28.7 % (8-40); MCH 30.3 pg (25.7-33.7); MCHC 33.4 g/dl (32.0-36.0); MEAN CELL VOLUME 90.9 fl (80-96); MEAN PLT VOLUME 8.1 fl (7.5-11.1); MONO % 8.2 % (3.8-10.2); NEUT % 59.7 % (42.8-82.8); PLATELET COUNT 225 K/MM3 (134-434); RBC 4.48 M/mm3 (3.60-5.2); RDW 13.5 % (11.6-15.6); WHITE BLOOD COUNT 11.1 K/mm3 (4.0-10.0)
[2018-08-28] MEDS: ACETAMINOPHEN 1000 MG/100 ML VIAL (NON FORMULARY) IVPB PRN ×2 (08:41→17:43)
[2018-08-28 08:49] LABS: INR 1.05 (0.83-1.09); PROTHROMBIN TIME (PATIENT) 12.4 SEC (9.7-13.0)
[2018-08-28 09:00] LABS: ALBUMIN 3.4 g/dl (3.4-5.0); BILIRUBIN,TOTAL 0.4 mg/dL (0.2-1); CALCIUM 8.4 mg/dL (8.5-10.1); CREATININE 0.7 mg/dL (0.55-1.3); MAGNESIUM 2.2 mg/dL (1.8-2.4); PHOSPHOROUS 3.6 mg/dL (2.5-4.9); POTASSIUM 3.7 mmol/L (3.5-5.1); TOT PROT 6.1 g/dl (6.4-8.2)
[2018-08-28] MEDS ORDERED: PT OWN MED DRAWER 7, Y5N ONE ×3 (09:26→21:32)
[2018-08-28] MEDS ORDERED: LISINOPRIL 5 MG TABLET (FP) PO SCH (10:00)
[2018-08-28] MEDS ORDERED: CALCIUM GLUCONATE 10% - 1,000 MG/10 ML VIAL IVPB ONE (10:00)
[2018-08-28] MEDS ORDERED: chlorproMAZINE HCL 100 MG TABLET PO SCH ×2 (10:00→22:00)
--- NOTE | 2018-08-28 10:33 | CONSULT ---
- Consultation REQUESTING PROVIDER: Aicha SAENZ CONSULT REQUEST: We have been asked to surgically evaluate this patient for evaluation and management of abdominal pain. PCP:Chichi Holcomb HISTORY OF PRESENT ILLNESS: CTSP who is a 43 y/o w/f who is well known to me who presented to the [facility] w/4 days of n/v and LLQ abdominal pain which was sharp and crampy and has now abated; she has a previous h/o a sigmoid colon resection for diverticulitis; I repaired her incisional hernia last year; she has not had a BM but she is passing flatus; she has no other c/o w/r/t her GI/ /[employer] systems. PMHx: htn/dm/depression/anxiety/ PSHx: incisional hernia repair w/mesh 06/15; sigmoid colon resection Home Medications Medication Instructions Recorded Lisinopril [Zestril] 2.5 mg PO DAILY 10/22/16 Dapagliflozin Propanediol [Farxiga] 10 mg PO DAILY 06/16/17 Ezetimibe [Zetia] 10 mg PO DAILY 06/16/17 Chlorpromazine [Thorazine -] 100 mg PO DAILY 08/27/18 Fluoxetine HCl [Prozac] 20 mg PO DAILY 08/27/18 [place]-3/Dha/Epa/Fish Oil [Fish Oil 1 each PO DAILY 08/27/18 1,000 mg Softgel] metFORMIN HCL [Metformin HCl ER] 750 mg PO DAILY 08/27/18 Allergies Allergy/AdvReac Type Severity Reaction Status Date / Time Penicillins Allergy Hives Verified 08/27/18 18:58 piperacillin sodium Allergy "hives" Verified 08/27/18 18:58 [From Zosyn] tazobactam sodium Allergy Hives Verified 08/27/18 18:58 [From Zosyn] PHYSICAL EXAM: GENERAL: Awake, alert, and fully oriented, in no acute distress. HEAD: Normal with no signs of trauma. EYES:sclera anicteric, conjunctiva clear. NECK: Normal ROM, supple without lymphadenopathy, JVD, or masses. LUNGS: Clear to auscultation bilat anteriorly. No wheezes, and no crackles. No accessory muscle use. HEART: Regular rate and rhythm. No murmurs ABDOMEN: Soft, slight tenderness to palpation LLQ; healed scars; no discernible hernias; no evidence of an acute surgical abdomen. UPPER EXTREMITIES: 2+ pulses, warm, well-perfused. No cyanosis. Cap refill <2 seconds. No peripheral edema. LOWER EXTREMITIES: 2+ pulses, warm, well-perfused. No calf tenderness. No peripheral edema. NEUROLOGICAL: Normal speech, gait not observed. PSYCH: Cooperative. Good eye contact. Appropriate mood and affect. SKIN: Warm, dry, normal turgor, no rashes or lesions noted. Vital Signs Temperature 98.8 F 08/28/18 04:29 Pulse Rate 56 L 08/28/18 04:29 Respiratory Rate 18 08/28/18 04:29 Blood Pressure 116/42 L 08/28/18 04:29 O2 Sat by Pulse Oximetry (%) 100 08/28/18 10:27 Lab Results WBC 11.1 K/mm3 (4.0-10.0) H 08/28/18 08:00 RBC 4.48 M/mm3 (3.60-5.2) 08/28/18 08:00 Hgb 13.6 GM/dL (10.7-15.3) 08/28/18 08:00 Hct 40.7 % (32.4-45.2) 08/28/18 08:00 MCV 90.9 fl (80-96) 08/28/18 08:00 MCHC 33.4 g/dl (32.0-36.0) 08/28/18 08:00 RDW 13.5 % (11.6-15.6) 08/28/18 08:00 Plt Count 225 K/MM3 (134-434) 08/28/18 08:00 Sodium 140 mmol/L (136-145) 08/28/18 08:00 Potassium 3.7 mmol/L (3.5-5.1) 08/28/18 08:00 Chloride 109 mmol/L (98-107) H 08/28/18 08:00 Carbon Dioxide 26 mmol/L (21-32) 08/28/18 08:00 Anion Gap 5 MMOL/L (8-16) L 08/28/18 08:00 BUN 9.0 mg/dL (7-18) 08/28/18 08:00 Creatinine 0.7 mg/dL (0.55-1.3) 08/28/18 08:00 Random Glucose 85 mg/dL (74-106) 08/28/18 08:00 Calcium 8.4 mg/dL (8.5-10.1) L 08/28/18 08:00 Blood Type A NEGATIVE 08/28/18 08:00 Antibody Screen Negative 08/28/18 08:00 INR 1.05 (0.83-1.09) 08/28/18 08:00 CT a/p reviewed IMP: abdominal pain of ? origin; clinically not c/w acute appendicitis PLAN: NPO/IVF/serial exams; doubt acute appendicitis based on exam and hx.; f/u imaging; d/w the patient. Boubacar Nuñez MD FACS
[2018-08-28] MEDS: EZETIMIBE 10 MG TABLET (FP) PO SCH (11:14)
[2018-08-28] MEDS: FLUoxetine HCL 20 MG CAPSULE (FP) PO SCH (11:14)
[2018-08-28] MEDS: morphine SULFATE 4 MG/ML VIAL IVPUSH PRN ×3 (11:48→22:00)
--- NOTE | 2018-08-28 16:01 | PN ---
Teaching Attending Note Name of Resident: Alba Gill ATTENDING PHYSICIAN STATEMENT I saw and evaluated the patient. I reviewed the resident's note and discussed the case with the resident. I agree with the resident's findings and plan as documented. SUBJECTIVE:continues to have abdominal pain that has improved with pain medications. pain is similar in nature to previous episodes of diverticulitis. no recent changes to her medications or diet. has been constipated recently. denies CP, SOB, fever, chills, N/V/D OBJECTIVE: Last Vital Signs Temp Pulse Resp BP Pulse Ox 98.7 F 52 L 18 118/76 100 08/28/18 14:00 08/28/18 14:00 08/28/18 14:00 08/28/18 14:00 08/28/18 10:27 General NAD CV S1 s2 RRR no murmur/rub/gallop lungs CTA B/l no wheezing/rales/rhonchi Abdomen soft +LUQ>LLQ pain. no guarding or rebound. no rovsing/obtrurator/psoas signs ASSESSMENT AND PLAN: 43yo F wtih PMH HTN, Dyslipidemia, DM and diverticulitis with bowel resection presented to the Er with abdominal pain and constipation 1. Abdominal pain- could be from constipation vs some other etiology. CT showing possible early appendicitis but clinically pt does not to have it. pain is more LUQ. will repeat CT abdomen with contrast. cont NPO wiht IVF and pain control. Surgery on board. UA is negative. LA negative 2. HTN- had episode of hypotension on presentation now resolved. will hold acei. 3. Leukocytosis- resolved. no signs of infection. will wait for infection to start abx 4. DM- hold oral agents. ISS and BGM 5. DVT ppx- will start lovenox
--- NOTE | 2018-08-28 16:53 | PN ---
Physical Exam: SUBJECTIVE: Patient seen and examined at bedside. Pt expressed some pain in LLQ of abdomen. pt stated the pain was originally 6/10 but improves to 3/10 after pain medication. OBJECTIVE: Vital Signs Period Temp Pulse Resp BP Sys/Reyes Pulse Ox Last 24 Hr 98.1 F-98.8 F 52-82 18-18 90-124/42-76 96-100 GENERAL: The patient is awake, alert, and fully oriented, in no acute distress. EYES: extraocular movements intact LUNGS: Breath sounds equal, clear to auscultation bilaterally, no wheezes, no crackles, no accessory muscle use. HEART: Regular rate and rhythm, S1, S2 without murmur, rub or gallop. ABDOMEN: Soft, tender to palpation on L side, nondistended, normoactive bowel sounds, no guarding, no rebound EXTREMITIES: 2+ pulses, warm, well-perfused, no edema. PSYCH: Normal mood, normal affect. SKIN: Warm, dry, normal turgor, no rashes or lesions noted Laboratory Last Values WBC 11.1 K/mm3 (4.0-10.0) H 08/28/18 08:00 RBC 4.48 M/mm3 (3.60-5.2) 08/28/18 08:00 Hgb 13.6 GM/dL (10.7-15.3) 08/28/18 08:00 Hct 40.7 % (32.4-45.2) 08/28/18 08:00 MCV 90.9 fl (80-96) 08/28/18 08:00 MCH 30.3 pg (25.7-33.7) 08/28/18 08:00 MCHC 33.4 g/dl (32.0-36.0) 08/28/18 08:00 RDW 13.5 % (11.6-15.6) 08/28/18 08:00 Plt Count 225 K/MM3 (134-434) 08/28/18 08:00 MPV 8.1 fl (7.5-11.1) 08/28/18 08:00 Absolute Neuts (auto) 6.6 K/mm3 (1.5-8.0) 08/28/18 08:00 Neutrophils % 59.7 % (42.8-82.8) 08/28/18 08:00 Lymphocytes % 28.7 % (8-40) D 08/28/18 08:00 Monocytes % 8.2 % (3.8-10.2) 08/28/18 08:00 Eosinophils % 3.1 % (0-4.5) 08/28/18 08:00 Basophils % 0.3 % (0-2.0) 08/28/18 08:00 Nucleated RBC % 0 % (0-0) 08/28/18 08:00 ESR 2 mm/hr (0-20) 08/28/18 08:00 PT with INR 12.40 SEC (9.7-13.0) 08/28/18 08:00 INR 1.05 (0.83-1.09) 08/28/18 08:00 PTT (Actin FS) 32.0 SECONDS (25.2-36.5) 08/28/18 08:00 Sodium 140 mmol/L (136-145) 08/28/18 08:00 Potassium 3.7 mmol/L (3.5-5.1) 08/28/18 08:00 Chloride 109 mmol/L (98-107) H 08/28/18 08:00 Carbon Dioxide 26 mmol/L (21-32) 08/28/18 08:00 Anion Gap 5 MMOL/L (8-16) L 08/28/18 08:00 BUN 9.0 mg/dL (7-18) 08/28/18 08:00 Creatinine 0.7 mg/dL (0.55-1.3) 08/28/18 08:00 Est GFR (CKD-EPI)AfAm 122.99 08/28/18 08:00 Est GFR (CKD-EPI)NonAf 106.12 08/28/18 08:00 POC Glucometer 86 UNITS (80-120) 08/28/18 12:33 Random Glucose 85 mg/dL (74-106) 08/28/18 08:00 Lactic Acid 1.3 mmol/L (0.4-2.0) 08/27/18 21:30 Calcium 8.4 mg/dL (8.5-10.1) L 08/28/18 08:00 Phosphorus 3.6 mg/dL (2.5-4.9) 08/28/18 08:00 Magnesium 2.2 mg/dL (1.8-2.4) 08/28/18 08:00 Total Bilirubin 0.4 mg/dL (0.2-1) 08/28/18 08:00 AST 8 U/L (15-37) L 08/28/18 08:00 ALT 19 U/L (13-61) 08/28/18 08:00 Alkaline Phosphatase 78 U/L (45-117) 08/28/18 08:00 Total Protein 6.1 g/dl (6.4-8.2) L 08/28/18 08:00 Albumin 3.4 g/dl (3.4-5.0) 08/28/18 08:00 Urine Color Yellow 08/27/18 21:30 Urine Appearance Clear 08/27/18 21:30 Urine pH 5.5 (5.0-8.0) 08/27/18 21:30 Ur Specific [place] 1.037 (1.010-1.035) H 08/27/18 21:30 Urine Protein Negative (NEGATIVE) 08/27/18 21:30 Urine Glucose (UA) 2+ (NEGATIVE) H 08/27/18 21:30 Urine Ketones Negative (NEGATIVE) 08/27/18 21:30 Urine Blood Negative (NEGATIVE) 08/27/18 21:30 Urine Nitrite Negative (NEGATIVE) 08/27/18 21:30 Urine Bilirubin Negative (NEGATIVE) 08/27/18 21:30 Urine Urobilinogen 1.0 mg/dL (0.2-1.0) 08/27/18 21:30 Ur Leukocyte Esterase Negative (NEGATIVE) 08/27/18 21:30 Urine HCG, Qual Negative 08/27/18 21:30 Stool Occult Blood Negative (NEGATIVE) 08/27/18 21:30 Blood Type A NEGATIVE 08/28/18 08:00 Antibody Screen Negative 08/28/18 08:00 CT Abdomen/ Pelvis: Borderline thickening of the appendix as discussed above with hyperemia of the appendiceal wall, early acute appendicitis cannot be excluded. No drainable fluid collections or extraluminal air is present. Correlate with physical examination. Follow-up imaging as clinically warranted. Findings discussed by the on-call radiologist at the time of this procedure with the clinician. Diverticulosis with no evidence to suggest acute diverticulitis at the present time. Postsurgical changes in the sigmoid colon as discussed above. Active Medications Acetaminophen (Ofirmev Injection -) 1,000 mg IVPB Q6H PRN PRN Reason: PAIN 1-3 Last Admin: 08/28/18 08:41 Dose: 1,000 mg Chlorpromazine HCl (Thorazine -) 100 mg PO HS [facility] Ezetimibe (Zetia -) 10 mg PO DAILY [facility] Last Admin: 08/28/18 11:14 Dose: 10 mg Enoxaparin Sodium (Lovenox -) 40 mg SQ DAILY [facility] Fluoxetine HCl (Prozac -) 20 mg PO DAILY [facility] Last Admin: 08/28/18 11:14 Dose: 20 mg Dextrose/Lactated Ringer's (D5-Lr+20 Meq Kcl -) 20 meq in 1,000 mls @ 83 mls/ hr IV ASDIR [facility] Stop: 08/29/18 18:03 Last Admin: 08/28/18 08:06 Dose: 83 mls/hr Insulin Aspart (Novolog Vial Sliding Scale -) 1 vial SQ [facility]; Protocol Morphine Sulfate (Morphine Sulfate) 1 mg IVPUSH Q4H PRN PRN Reason: PAIN LEVEL 7 - 10 Last Admin: 08/28/18 15:26 Dose: 1 mg ASSESSMENT/PLAN: 43 yo F presenting to ED with L sided abdominal pain for 4 days. Pt has a PMHx of HLD, HTN, DM diverticulitis s/p bowel resection. Pt states this abdominal pain feels similar to the pain she had from previous diverticulitis pt also complaining of constipation. pt states last BM was last week. 1. Diverticulosis -awaiting IV/PO contrast CT abdomen /pelvis -recommendations from surgery appreciated -morpine prn for pain control -NPO/ IVF 2. HTN -BP controlled off medications -continue to monitor, will consider restarting home dose MARY-I if BP is above goal 3. Hyperlipidemia -continue home medications 4. Psych Hx -continue home medications 5. DM -pt NPO, hold medications -sliding scale and BGM 6. DVT ppx -Lovenox 40mg SQ Visit type - Emergency Visit Emergency Visit: No - New Patient This patient is new to me today: Yes Date on this admission: 08/28/18 - Critical Care Critical Care patient: No
[2018-08-28] MEDS: ENOXAPARIN NA (PORCINE) 40 MG/0.4 ML DISP.SYRIN SQ SCH (17:25)
[2018-08-29] MEDS: D5-LR+20 MEQ KCL - 20 MEQ/1,000 ML INFUS.BAG IV SCH (06:19)
[2018-08-29] MEDS: INSULIN SLIDING SCALE (NOVOLOG) 1 VIAL SQ SCH ×2 (06:19→11:53)
--- NOTE | 2018-08-29 09:07 | PN ---
Physical Exam: SUBJECTIVE: Patient seen and examined at bedside. Pt states she had BM last night and has since improved. she says her pain is much better and now she only has some soreness. OBJECTIVE: Vital Signs Period Temp Pulse Resp BP Sys/Reyes Pulse Ox Last 24 Hr 98.1 F-98.7 F 43-52 18-20 103-129/56-76 100-100 GENERAL: The patient is awake, alert, and fully oriented, in no acute distress. HEAD: Normal with no signs of trauma. LUNGS: Breath sounds equal, clear to auscultation bilaterally, no wheezes, no crackles, no accessory muscle use. HEART: Regular rate and rhythm, S1, S2 without murmur, rub or gallop. ABDOMEN: Soft, mildly tender LUQ and LLQ, nondistended, normoactive bowel sounds , no guarding, no rebound, EXTREMITIES: 2+ pulses, warm, well-perfused, no edema. NEUROLOGICAL: Cranial nerves II through XII grossly intact. Normal speech, gait not observed. PSYCH: Normal mood, normal affect. SKIN: Warm, dry, normal turgor, no rashes or lesions noted Laboratory Last Values WBC 11.1 K/mm3 (4.0-10.0) H 08/28/18 08:00 RBC 4.48 M/mm3 (3.60-5.2) 08/28/18 08:00 Hgb 13.6 GM/dL (10.7-15.3) 08/28/18 08:00 Hct 40.7 % (32.4-45.2) 08/28/18 08:00 MCV 90.9 fl (80-96) 08/28/18 08:00 MCH 30.3 pg (25.7-33.7) 08/28/18 08:00 MCHC 33.4 g/dl (32.0-36.0) 08/28/18 08:00 RDW 13.5 % (11.6-15.6) 08/28/18 08:00 Plt Count 225 K/MM3 (134-434) 08/28/18 08:00 MPV 8.1 fl (7.5-11.1) 08/28/18 08:00 Absolute Neuts (auto) 6.6 K/mm3 (1.5-8.0) 08/28/18 08:00 Neutrophils % 59.7 % (42.8-82.8) 08/28/18 08:00 Lymphocytes % 28.7 % (8-40) D 08/28/18 08:00 Monocytes % 8.2 % (3.8-10.2) 08/28/18 08:00 Eosinophils % 3.1 % (0-4.5) 08/28/18 08:00 Basophils % 0.3 % (0-2.0) 08/28/18 08:00 Nucleated RBC % 0 % (0-0) 08/28/18 08:00 ESR 2 mm/hr (0-20) 08/28/18 08:00 PT with INR 12.40 SEC (9.7-13.0) 08/28/18 08:00 INR 1.05 (0.83-1.09) 08/28/18 08:00 PTT (Actin FS) 32.0 SECONDS (25.2-36.5) 08/28/18 08:00 Sodium 140 mmol/L (136-145) 08/28/18 08:00 Potassium 3.7 mmol/L (3.5-5.1) 08/28/18 08:00 Chloride 109 mmol/L (98-107) H 08/28/18 08:00 Carbon Dioxide 26 mmol/L (21-32) 08/28/18 08:00 Anion Gap 5 MMOL/L (8-16) L 08/28/18 08:00 BUN 9.0 mg/dL (7-18) 08/28/18 08:00 Creatinine 0.7 mg/dL (0.55-1.3) 08/28/18 08:00 Est GFR (CKD-EPI)AfAm 122.99 08/28/18 08:00 Est GFR (CKD-EPI)NonAf 106.12 08/28/18 08:00 POC Glucometer 105 UNITS (80-120) 08/29/18 06:08 Random Glucose 85 mg/dL (74-106) 08/28/18 08:00 Lactic Acid 1.3 mmol/L (0.4-2.0) 08/27/18 21:30 Calcium 8.4 mg/dL (8.5-10.1) L 08/28/18 08:00 Phosphorus 3.6 mg/dL (2.5-4.9) 08/28/18 08:00 Magnesium 2.2 mg/dL (1.8-2.4) 08/28/18 08:00 Total Bilirubin 0.4 mg/dL (0.2-1) 08/28/18 08:00 AST 8 U/L (15-37) L 08/28/18 08:00 ALT 19 U/L (13-61) 08/28/18 08:00 Alkaline Phosphatase 78 U/L (45-117) 08/28/18 08:00 Total Protein 6.1 g/dl (6.4-8.2) L 08/28/18 08:00 Albumin 3.4 g/dl (3.4-5.0) 08/28/18 08:00 Urine Color Yellow 08/27/18 21:30 Urine Appearance Clear 08/27/18 21:30 Urine pH 5.5 (5.0-8.0) 08/27/18 21:30 Ur Specific [place] 1.037 (1.010-1.035) H 08/27/18 21:30 Urine Protein Negative (NEGATIVE) 08/27/18 21:30 Urine Glucose (UA) 2+ (NEGATIVE) H 08/27/18 21:30 Urine Ketones Negative (NEGATIVE) 08/27/18 21:30 Urine Blood Negative (NEGATIVE) 08/27/18 21:30 Urine Nitrite Negative (NEGATIVE) 08/27/18 21:30 Urine Bilirubin Negative (NEGATIVE) 08/27/18 21:30 Urine Urobilinogen 1.0 mg/dL (0.2-1.0) 08/27/18 21:30 Ur Leukocyte Esterase Negative (NEGATIVE) 08/27/18 21:30 Urine HCG, Qual Negative 08/27/18 21:30 Stool Occult Blood Negative (NEGATIVE) 08/27/18 21:30 Blood Type A NEGATIVE 08/28/18 08:00 Antibody Screen Negative 08/28/18 08:00 Active Medications Acetaminophen (Ofirmev Injection -) 1,000 mg IVPB Q6H PRN PRN Reason: PAIN 1-3 Last Admin: 08/28/18 17:43 Dose: 1,000 mg Chlorpromazine HCl (Thorazine -) 100 mg PO HS [facility] Last Admin: 08/28/18 22:03 Dose: 100 mg Ezetimibe (Zetia -) 10 mg PO DAILY [facility] Last Admin: 08/28/18 11:14 Dose: 10 mg Enoxaparin Sodium (Lovenox -) 40 mg SQ DAILY [facility] Last Admin: 08/28/18 17:25 Dose: 40 mg Fluoxetine HCl (Prozac -) 20 mg PO DAILY [facility] Last Admin: 08/28/18 11:14 Dose: 20 mg Dextrose/Lactated Ringer's (D5-Lr+20 Meq Kcl -) 20 meq in 1,000 mls @ 83 mls/ hr IV ASDIR [facility] Stop: 08/29/18 18:03 Last Admin: 08/29/18 06:19 Dose: Not Given Insulin Aspart (Novolog Vial Sliding Scale -) 1 vial SQ [facility]; Protocol Last Admin: 08/29/18 06:19 Dose: Not Given Morphine Sulfate (Morphine Sulfate) 1 mg IVPUSH Q4H PRN PRN Reason: PAIN LEVEL 7 - 10 Last Admin: 08/28/18 22:00 Dose: 1 mg IV/PO CT Abdomen/Pelvis: Interval minimal decrease in the size of the appendix now measuring 10 mm in diameter with mild thickening and hyperemia of its proximal wall and interval mild stranding of the surrounding fat/ mesentery. Findings are suggestive of early/mild acute appendicitis without extraluminal air or abscess formation. ASSESSMENT/PLAN: ASSESSMENT/PLAN: 43 yo F presenting to ED with L sided abdominal pain for 4 days. Pt has a PMHx of HLD, HTN, DM diverticulitis s/p bowel resection. Pt states this abdominal pain feels similar to the pain she had from previous diverticulitis pt had BM last night. pt stating improvement 1. Early Mild/ acute appendicitis - IV/PO contrast CT abdomen /pelvis showed early mild/acute appendicitis -following with Dr. Nuñez recommendations -morpine prn for pain control -clear liquids, IVF -pt afebrile 2. HTN -BP controlled off medications -continue to monitor, will consider restarting home dose MARY-I if BP is above goal 3. Hyperlipidemia -continue home medications 4. Psych Hx -continue home medications 5. DM -pt NPO, hold medications -sliding scale and BGM 6. DVT ppx -Lovenox 40mg SQ
--- NOTE | 2018-08-29 09:15 | PN ---
Progress Note (short form) - Note Progress Note: Attending Surgeon Seen in f/u; she has absolutely no c/o pain in her RLQ; she is sitting up in bed VSS AF abdo-soft; flat and non tender; on focused there is a reducible hernia close to the umbilicus which is reducible o/w the previous repair is intact. No Rovsings/ psoas/obturator f/u CT reviewed IMP: doubt appendicitis based on clinical grounds; pain possibly related to incisional hernia PLAN: Suggest advance to clear liquids; check CBC; will re-evaluated again later today. Boubacar Nuñez MD FACS
[2018-08-29] MEDS: FLUoxetine HCL 20 MG CAPSULE (FP) PO SCH (09:33)
[2018-08-29] MEDS: ENOXAPARIN NA (PORCINE) 40 MG/0.4 ML DISP.SYRIN SQ SCH (09:33)
[2018-08-29] MEDS: EZETIMIBE 10 MG TABLET (FP) PO SCH (09:33)
[2018-08-29 10:55] LABS: BASO % 0.3 % (0-2.0); EOS % 2.6 % (0-4.5); HEMATOCRIT 40.3 % (32.4-45.2); HEMOGLOBIN 13.7 GM/dL (10.7-15.3); LYMPH % 25.1 % (8-40); MCH 30.5 pg (25.7-33.7); MCHC 33.9 g/dl (32.0-36.0); MEAN CELL VOLUME 89.9 fl (80-96); MEAN PLT VOLUME 8.3 fl (7.5-11.1); MONO % 7.1 % (3.8-10.2); NEUT % 64.9 % (42.8-82.8); PLATELET COUNT 217 K/MM3 (134-434); RBC 4.48 M/mm3 (3.60-5.2); RDW 13.4 % (11.6-15.6); WHITE BLOOD COUNT 7.6 K/mm3 (4.0-10.0)
[2018-08-29 11:18] LABS: BLOOD UREA NITROGEN 6.8 mg/dL (7-18); CREATININE 0.7 mg/dL (0.55-1.3)
--- NOTE | 2018-08-29 14:57 | EKG ---
Test Reason : Blood Pressure : / mmHG Vent. Rate : 049 BPM Atrial Rate : 049 BPM P-R Int : 204 ms QRS Dur : 086 ms QT Int : 478 ms P-R-T Axes : 042 010 027 degrees QTc Int : 431 ms POOR DATA QUALITY, INTERPRETATION MAY BE ADVERSELY AFFECTED SINUS BRADYCARDIA WITH SINUS ARRHYTHMIA OTHERWISE NORMAL ECG WHEN COMPARED WITH ECG OF 12-JAN-2006 23:32, VENT. RATE HAS DECREASED BY 41 BPM Confirmed by MD GERSON, RANDA ([id number]) on 08/29/2018 2:57:03 PM Referred By: Confirmed By:RANDA NIETO MD
[2018-08-29 17:30] VITALS: BP 108/58; PULSE 65; TEMP 98.7
--- NOTE | 2018-08-29 18:10 | DS ---
Physical Exam: SUBJECTIVE: Patient seen and examined at bedside. Pt states that her abdominal pain has resolved. OBJECTIVE: Vital Signs Period Temp Pulse Resp BP Sys/Reyes Pulse Ox Last 24 Hr 98.1 F-98.7 F 43-65 18-20 103-122/56-74 99-100 PHYSICAL EXAM GENERAL: The patient is awake, alert, and fully oriented, in no acute distress. LUNGS: Breath sounds equal, clear to auscultation bilaterally, no wheezes, no crackles, no accessory muscle use. HEART: Regular rate and rhythm, S1, S2 without murmur, rub or gallop. ABDOMEN: Soft, tender to palpation in LLQ and LUQ, nondistended, normoactive bowel sounds. pt also has a reducible cheng-umbilical hernia EXTREMITIES: 2+ pulses, warm, well-perfused, no edema. NEUROLOGICAL: Cranial nerves II through XII grossly intact. Normal speech, gait not observed. PSYCH: Normal mood, normal affect. SKIN: Warm, dry, normal turgor, no rashes or lesions noted. Laboratory Last Values WBC 7.6 K/mm3 (4.0-10.0) 08/29/18 10:05 RBC 4.48 M/mm3 (3.60-5.2) 08/29/18 10:05 Hgb 13.7 GM/dL (10.7-15.3) 08/29/18 10:05 Hct 40.3 % (32.4-45.2) 08/29/18 10:05 MCV 89.9 fl (80-96) 08/29/18 10:05 MCH 30.5 pg (25.7-33.7) 08/29/18 10:05 MCHC 33.9 g/dl (32.0-36.0) 08/29/18 10:05 RDW 13.4 % (11.6-15.6) 08/29/18 10:05 Plt Count 217 K/MM3 (134-434) 08/29/18 10:05 MPV 8.3 fl (7.5-11.1) 08/29/18 10:05 Absolute Neuts (auto) 4.9 K/mm3 (1.5-8.0) 08/29/18 10:05 Neutrophils % 64.9 % (42.8-82.8) 08/29/18 10:05 Lymphocytes % 25.1 % (8-40) 08/29/18 10:05 Monocytes % 7.1 % (3.8-10.2) 08/29/18 10:05 Eosinophils % 2.6 % (0-4.5) 08/29/18 10:05 Basophils % 0.3 % (0-2.0) 08/29/18 10:05 Nucleated RBC % 0 % (0-0) 08/29/18 10:05 ESR 2 mm/hr (0-20) 08/28/18 08:00 PT with INR 12.40 SEC (9.7-13.0) 08/28/18 08:00 INR 1.05 (0.83-1.09) 08/28/18 08:00 PTT (Actin FS) 32.0 SECONDS (25.2-36.5) 08/28/18 08:00 Sodium 138 mmol/L (136-145) 08/29/18 10:05 Potassium 4.0 mmol/L (3.5-5.1) 08/29/18 10:05 Chloride 108 mmol/L (98-107) H 08/29/18 10:05 Carbon Dioxide 24 mmol/L (21-32) 08/29/18 10:05 Anion Gap 7 MMOL/L (8-16) L 08/29/18 10:05 BUN 6.8 mg/dL (7-18) L 08/29/18 10:05 Creatinine 0.7 mg/dL (0.55-1.3) 08/29/18 10:05 Est GFR (CKD-EPI)AfAm 122.99 08/29/18 10:05 Est GFR (CKD-EPI)NonAf 106.12 08/29/18 10:05 POC Glucometer 118 UNITS (80-120) 08/29/18 11:50 Random Glucose 120 mg/dL (74-106) H 08/29/18 10:05 Lactic Acid 1.3 mmol/L (0.4-2.0) 08/27/18 21:30 Calcium 9.0 mg/dL (8.5-10.1) 08/29/18 10:05 Phosphorus 3.6 mg/dL (2.5-4.9) 08/28/18 08:00 Magnesium 2.2 mg/dL (1.8-2.4) 08/28/18 08:00 Total Bilirubin 0.4 mg/dL (0.2-1) 08/28/18 08:00 AST 8 U/L (15-37) L 08/28/18 08:00 ALT 19 U/L (13-61) 08/28/18 08:00 Alkaline Phosphatase 78 U/L (45-117) 08/28/18 08:00 Total Protein 6.1 g/dl (6.4-8.2) L 08/28/18 08:00 Albumin 3.4 g/dl (3.4-5.0) 08/28/18 08:00 Urine Color Yellow 08/27/18 21:30 Urine Appearance Clear 08/27/18 21:30 Urine pH 5.5 (5.0-8.0) 08/27/18 21:30 Ur Specific Darden 1.037 (1.010-1.035) H 08/27/18 21:30 Urine Protein Negative (NEGATIVE) 08/27/18 21:30 Urine Glucose (UA) 2+ (NEGATIVE) H 08/27/18 21:30 Urine Ketones Negative (NEGATIVE) 08/27/18 21:30 Urine Blood Negative (NEGATIVE) 08/27/18 21:30 Urine Nitrite Negative (NEGATIVE) 08/27/18 21:30 Urine Bilirubin Negative (NEGATIVE) 08/27/18 21:30 Urine Urobilinogen 1.0 mg/dL (0.2-1.0) 08/27/18 21:30 Ur Leukocyte Esterase Negative (NEGATIVE) 08/27/18 21:30 Urine HCG, Qual Negative 08/27/18 21:30 Stool Occult Blood Negative (NEGATIVE) 08/27/18 21:30 Blood Type A NEGATIVE 08/28/18 08:00 Antibody Screen Negative 08/28/18 08:00 CT Abdomen and Pelvis with contrast: Interval minimal decrease in the size of the appendix now measuring 10 mm in diameter with mild thickening and hyperemia of its proximal wall and interval mild stranding of the surrounding fat/ mesentery. Findings are suggestive of early/mild acute appendicitis without extraluminal air or abscess formation. HOSPITAL COURSE: Date of Admission:08/28/18 ASSESSMENT/PLAN: 43 yo F presenting to ED with L sided abdominal pain for 4 days. Pt has a PMHx of HLD, HTN, DM diverticulitis s/p bowel resection. Pt states this abdominal pain feels similar to the pain she had from previous diverticulitis. Pt was also complaining of constipation for 5 days. While admitted, Pt had a CT abdomen /pelvis showing early /mild acute appendicitis. Following the CT with contrast pt had bowel movement and reported alleviation of symptoms. Pt followed by Dr. Nuñez. The pt was NPO with IVF. The pt was on BGM and Insulin sliding scale. Blood glucose has been stable throughout admission. Throughout the hospital course, the pt blood pressure was controlled off medications, therefore the MARY- I has been held. The pt has been continuing their home medication for cholesterol and for her anxiety/psych history. DISPO: HOME Date of Discharge: 08/29/18 Minutes to complete discharge: 37 Discharge Summary Reason For Visit: INTRACTABLE ABDOMINAL PAIN Condition: Improved - Instructions Diet, Activity, Other Instructions: You presented to the hospital with abdominal pain and constipation. You had imaging done to check for any infection in your abdomen. You were evaluated by surgery and recommended no surgery at this time. Medication Changes: Please do not take your blood pressure medication, Lisinopril, for now because you had an episode of low blood pressure while at the hospital. It is important that you follow up with your primary care doctor to discuss resuming the medication. Follow up with the following physicians: 1. Please follow up with your primary care physician (Dr. Knott) in 1 week. 2. Please follow up with surgery (Dr. Nuñez) within 1 week. Labwork: 1. Your lab results were within normal ranges Activity/Diet: 1. Continue to follow a healthy, high fiber diet and exercise. You are being discharged home. Please return to the ER if you have any signs or symptoms of chest pain, shortness of breath, uncontrollable fever, chills, nausea, vomiting, numbness, tingling, or weakness in any part of your body, changes in vision, or slurred speech. Please return to the ER if symptoms persist, worsen, or new symptoms arise. Referrals: Roberto Knott MD [Primary Care Provider] - Disposition: HOME - Home Medications Comprehensive Discharge Medication List: Ambulatory Orders Ezetimibe [Zetia] 10 mg PO DAILY 06/16/17 Chlorpromazine [Thorazine -] 100 mg PO DAILY 08/27/18 Fluoxetine HCl [Prozac] 20 mg PO DAILY 08/27/18 metFORMIN HCL [Metformin HCl ER] 750 mg PO DAILY 08/27/18 This patient is new to me today: No Emergency Visit: No Critical Care patient: No - Discharge Referral Referred to [facility] No
--- NOTE | 2018-08-29 19:40 | PN ---
Teaching Attending Note Name of Resident: Alba Gill ATTENDING PHYSICIAN STATEMENT I saw and evaluated the patient. I reviewed the resident's note and discussed the case with the resident. I agree with the resident's findings and plan as documented. SUBJECTIVE: LLQ abdominal discomfort improving. No fever/chills. No nausea/ vomiting. OBJECTIVE: Afebrile/Hemodynamically Stable Last Vital Signs Temp Pulse Resp BP Pulse Ox 98.7 F 65 20 108/58 L 99 08/29/18 16:15 08/29/18 16:15 08/29/18 16:15 08/29/18 16:15 08/29/18 09:00 HEENT - Atraumatic, Normocephalic. Heart - S1, S2, RRR Lungs - clear to auscultation Abdomen - Soft, mild LLQ tenderness. Bowel Sounds normal. Extremities - no edema, no calf tenderness. Laboratory Results - last 24 hr 08/28/18 08/29/18 08/29/18 21:59 06:08 10:05 WBC RBC Hgb Hct MCV MCH MCHC RDW Plt Count MPV Absolute Neuts (auto) Neutrophils % Lymphocytes % Monocytes % Eosinophils % Basophils % Nucleated RBC % Sodium 138 Potassium 4.0 Chloride 108 H Carbon Dioxide 24 Anion Gap 7 L BUN 6.8 L Creatinine 0.7 Est GFR (CKD-EPI)AfAm 122.99 Est GFR (CKD-EPI)NonAf 106.12 POC Glucometer 102 105 Random Glucose 120 H Calcium 9.0 08/29/18 08/29/18 10:05 11:50 WBC 7.6 RBC 4.48 Hgb 13.7 Hct 40.3 MCV 89.9 MCH 30.5 MCHC 33.9 RDW 13.4 Plt Count 217 MPV 8.3 Absolute Neuts (auto) 4.9 Neutrophils % 64.9 Lymphocytes % 25.1 Monocytes % 7.1 Eosinophils % 2.6 Basophils % 0.3 Nucleated RBC % 0 Sodium Potassium Chloride Carbon Dioxide Anion Gap BUN Creatinine Est GFR (CKD-EPI)AfAm Est GFR (CKD-EPI)NonAf POC Glucometer 118 Random Glucose Calcium Discharge Medications Medication Instructions Recorded Ezetimibe [Zetia] 10 mg PO DAILY 06/16/17 Chlorpromazine [Thorazine -] 100 mg PO DAILY 08/27/18 Fluoxetine HCl [Prozac] 20 mg PO DAILY 08/27/18 metFORMIN HCL [Metformin HCl ER] 750 mg PO DAILY 08/27/18 ASSESSMENT AND PLAN: 43 year old female with HTN, HLD, DM 2, Depression, Hx of Diverticulitis s/p bowel resection presented to the ED with abdominal pain. 1. Non-specific Abdominal pain - likely secondary to constipation. CT A/P - possible early appendicitis. As per Surgery, clinically no acute appendicitis. If surgically cleared, can be discharged. 2. HTN - borderline - MARY-I held - for BP follow up and re-instatement of MARY-I as out-patient. 3. Leukocytosis - resolved. No signs of infection. No Abx required. 4. DM 2 - resume home meds. 5. Depression -continue Fluoxetine. 6. HLD - Continue Zetia Medically optimized for discharge once tolerating regular diet and cleared by surgery.
== END 2018-08-29 17:10 | disposition home or self-care (01) | DRG 394 ==
LOC: JER 18:53 → JERBED 08-28 02:53 → J8W 08-28 07:28
PROVIDERS: ADMIT Internal Medicine
DX: K42.9 Umbilical hernia without obstruction or gangrene (principal); F31.89 Other bipolar disorder; K59.00 Constipation, unspecified; E11.9 Type 2 diabetes mellitus without complications; K57.90 Diverticulosis of intestine, part unspecified, without perforation or abscess without bleeding; E78.00 Pure hypercholesterolemia, unspecified; K76.0 Fatty (change of) liver, not elsewhere classified; F17.210 Nicotine dependence, cigarettes, uncomplicated; K52.9 Noninfective gastroenteritis and colitis, unspecified; I10 Essential (primary) hypertension; F41.8 Other specified anxiety disorders; D72.828 Other elevated white blood cell count; R10.32 Left lower quadrant pain
CPT/HCPCS: 36415; 74177-TC; 80048; 80053; 81003; 82272; 82962; 83605; 83735; 84100; 84703; 85025; 85610; 85651; 85730; 86850; 86900; 86901; 93005; 93010; 99285-25; J0131